=== PATIENT | male | born 1960 | race Caucasian/White ===

== ENCOUNTER 2019-04-19 06:46 | Inpatient (IN) | payer SELFPAY ==
[~2019-04-19] VITALS: Ht 170.2 cm; Wt 68.8 kg
[2019-04-19 07:23] LABS: BASOPHILS ABSOLUTE AUTO 0.03 K/mm3 (0.00-0.23); BASOPHILS PERCENT AUTO 0 % (0-2); EOSINOPHILS PERCENT AUTO 3 % (0-6); Hematocrit 45.7 % (37.0-53.0); Hemoglobin 15.5 g/dL (13.5-17.5); IMMATURE GRAN ABSOLUTE AUTO 0.03 K/mm3 (0.00-0.10); IMMATURE GRAN PERCENT AUTO 0 % (0-1); LYMPHOCYTES ABSOLUTE AUTO 2.29 K/mm3 (0.84-5.20); LYMPHOCYTES PERCENT AUTO 33 % (21-46); MONOCYTES ABSOLUTE AUTO 0.41 K/mm3 (0.16-1.47); MONOCYTES PERCENT AUTO 6 % (4-13); Mean Corpuscular HGB 31.3 pg (26.0-34.0); Mean Corpuscular HGB Conc 33.9 g/dL (31.5-36.5); Mean Corpuscular Volume 92 fL (80-100); Mean Platelet Volume 9.4 fL (9.1-12.4); NEUTROPHILS ABSOLUTE AUTO 3.98 K/mm3 (1.96-9.15); NEUTROPHILS PERCENT AUTO 57 % (41-73); Platelet Count 274 K/mm3 (150-400); RDW Coefficient Variation 11.9 % (11.7-14.2); RDW Standard Deviation 40.2 fL (35.1-46.3); Red Blood Cell Count 4.96 M/mm3 (4.30-5.90); White Blood Cell Count 6.94 K/mm3 (4.00-11.30)
[2019-04-19 07:43] LABS: Alanine Aminotransfer (ALT/SGP 27 U/L (12-78); Albumin, Blood 3.6 g/dL (3.4-5.0); Alk Phos 81 U/L (50-136); Anion Gap 6 mmol/L (6-16); Aspartate Aminotrans (AST/SGOT 19 U/L (12-37); Bilirubin, Total 0.3 mg/dL (0.1-1.0); Blood Urea Nitrogen 16 mg/dL (8-24); Bun/Creatinine Ratio 18.3 (12.0-20.0); CO2, Blood 25 mmol/L (21-32); Calcium, Blood 8.3 mg/dL (8.5-10.1); Chloride, Blood 110 mmol/L (98-108); Creatinine, Blood 0.87 mg/dL (0.60-1.20); Globulin, Blood 3.7 g/dL (2.2-4.0); Glomerular Filtration Rate >60 (60-); Glucose, Blood 116 mg/dL (70-99); Potassium, Blood 3.9 mmol/L (3.5-5.5); Sodium, Blood 141 mmol/L (136-145); Total Protein, Blood 7.3 g/dL (6.4-8.2); Troponin I <0.015 ng/mL (0.000-0.040)
[2019-04-19 09:30] LABS: CHOL/HDL RATIO 4.7; Cholesterol 231 mg/dL (50-200); HDL Cholesterol 49 mg/dL (>39); LDL/HDL RATIO 2.8; Low Density Lipoprotein Chol 138 mg/dL (0-110); Triglycerides 221 mg/dL (30-160); Very Low Density Lipoprot Chol 44 mg/dL (6-32)
--- NOTE | 2019-04-19 11:30 | NUR ---
ASSUMED CARE OF PT AT 1105. PT TO ROOM FROM MASTER MECHANIC. REPORT FROM SALUD PA. PT A&OX 4. ANSWERS QUESTIONS APPROPRIATELY. PT DENIES PAIN. TR BAND TO RIGHT RADIAL ARTERIAL SITE. SWELLING NOTED ABOVE SITE, SOFT, VERIFIED c SALUD PA AND NATE TECH. PRESSURE HELD AND TR BAND APPLIED ABOVE INITIAL TR BAND BY NATE AT 1118. CAP REFILL <3, SENSATION INTACT. HANDS DUSKY BILATERALLY. EDUCATED PT ON INFORMING NURSE OF PAIN OR SWELLING. LUNGS CLEAR. HTN NOTED. CALL LIGHT IN REACH. WILL CONTINUE TO MONITOR.
[2019-04-19 12:00] LABS: Creatine Kinase MB 1.4 ng/mL (0.0-3.6); Creatine Kinase MB Index 1.5 (0.0-4.0); Troponin I 0.031 ng/mL (0.000-0.040)
--- NOTE | 2019-04-19 12:15 | NUR ---
Echocardiogram completed.
--- NOTE | 2019-04-19 13:19 | NUR ---
DR LIZ CONTACTED. LOADING DOSE OF PLAVIX VERIFIED. REPEAT EKG DONE. HTN CONTINUES, MEDICATED c NORVASC AND LOPRESSOR NOW ORDERED. PT CONTINUES TO DENY CP. SCDS APPLIED. WILL HOLD SC HEPARIN AT THIS TIME. NO SWELLING NOTED ABOVE TR BANDS. PT DENIES PAIN TO SITE, SOFT. CAP REFILL<3. WILL CONTINUE TO MONITOR.
--- NOTE | 2019-04-19 17:15 | NUR ---
SHIFT SUMMARY PT S/P STENT PLACEMENT TO DISTAL RCA. PT ARRIVED TO ICU c TR BAND IN PLACE TO RIGHT RADIAL ACCESS SITE. ADDITIONAL TR BAND PLACED PROXIMAL TO INITIAL TR BAND BY MACHINIST LINOTYPE. BOTH BANDS REMOVED AT THIS TIME. ARM BOARD REMAINS IN PLACE. NO BLEEDING OR OOZING FROM SITE. SWELLING NOTED DIRECTLY ABOVE INITIAL TR BAND SITE. PT DENIES PAIN. SENSATION INTACT. CAP REFILL < 3 SEC. P/W/D. WILL CONTINUE TO MONITOR. PT DENIES CHEST PAIN OR OTHER COMPLAINTS. VSS. HR INTERMITTANTLY DECREASES TO MID 40'S. PT DENIES SYMPTOMS c BRADYCARDIA. RATE 50-60'S AT THIS TIME. REPORT TO ONCOMING NURSE.
[2019-04-19 19:34] LABS: Creatine Kinase MB 2.9 ng/mL (0.0-3.6); Creatine Kinase MB Index 2.8 (0.0-4.0); Troponin I 0.238 ng/mL (0.000-0.040)
--- NOTE | 2019-04-19 19:45 | NUR ---
ASSUMED CARE RECIEVED RERPORT FROM PANKAJ RN. PT IS IN BED A& O X 4. PT HAD A RIGHT RADIAL ACCESS, AND SITE LOOKS WNL, SOFT, NONTENDER, AND FREE OF SIGNS OF BLEEDING - ALTHOUGH HAS TRACE SWELLING. GOOD PULSES, CAP REFIL, AND COLOR TO SKIN. DENIES PAIN, AND TINGLING. MOVES ALL FINGERS. PT HAS SCD'S ON. CALL LIGHT WITHIN REACH. BED LOW AND LOCKED. DENIES PAIN.
[2019-04-20 03:12] LABS: BASOPHILS ABSOLUTE AUTO 0.03 K/mm3 (0.00-0.23); BASOPHILS PERCENT AUTO 0 % (0-2); EOSINOPHILS ABSOLUTE AUTO 0.25 K/mm3 (0.00-0.68); EOSINOPHILS PERCENT AUTO 3 % (0-6); Hematocrit 47.8 % (37.0-53.0); IMMATURE GRAN ABSOLUTE AUTO 0.07 K/mm3 (0.00-0.10); IMMATURE GRAN PERCENT AUTO 1 % (0-1); LYMPHOCYTES ABSOLUTE AUTO 2.95 K/mm3 (0.84-5.20); LYMPHOCYTES PERCENT AUTO 32 % (21-46); MONOCYTES ABSOLUTE AUTO 0.68 K/mm3 (0.16-1.47); MONOCYTES PERCENT AUTO 7 % (4-13); Mean Corpuscular HGB 31.7 pg (26.0-34.0); Mean Corpuscular HGB Conc 33.5 g/dL (31.5-36.5); Mean Platelet Volume 9.5 fL (9.1-12.4); NEUTROPHILS ABSOLUTE AUTO 5.26 K/mm3 (1.96-9.15); NEUTROPHILS PERCENT AUTO 57 % (41-73); Platelet Count 267 K/mm3 (150-400); RDW Coefficient Variation 11.9 % (11.7-14.2); RDW Standard Deviation 41.1 fL (35.1-46.3); Red Blood Cell Count 5.05 M/mm3 (4.30-5.90); White Blood Cell Count 9.24 K/mm3 (4.00-11.30)
[2019-04-20 03:14] LABS: Mean Corpuscular Volume 95 fL (80-100)
[2019-04-20 03:37] LABS: Anion Gap 7 mmol/L (6-16); Blood Urea Nitrogen 18 mg/dL (8-24); Bun/Creatinine Ratio 19.3 (12.0-20.0); CHOL/HDL RATIO 4.5; CO2, Blood 24 mmol/L (21-32); CPK Creatine Kinase 106 U/L (39-308); Calcium, Blood 8.7 mg/dL (8.5-10.1); Chloride, Blood 108 mmol/L (98-108); Cholesterol 229 mg/dL (50-200); Creatine Kinase MB Index 4.7 (0.0-4.0); Creatinine, Blood 0.94 mg/dL (0.60-1.20); Glomerular Filtration Rate >60 (60-); Glucose, Blood 108 mg/dL (70-99); HDL Cholesterol 51 mg/dL (>39); LDL/HDL RATIO 2.3; Low Density Lipoprotein Chol 116 mg/dL (0-110); Potassium, Blood 4.4 mmol/L (3.5-5.5); Sodium, Blood 139 mmol/L (136-145); Triglycerides 310 mg/dL (30-160); Troponin I 0.436 ng/mL (0.000-0.040); Very Low Density Lipoprot Chol 62 mg/dL (6-32)
--- NOTE | 2019-04-20 06:09 | NUR ---
SHIFT SUMMARY NO ACUTE EVENTS OVERNIGHT. PT REMAINS A&O X 4 (SELF, SURROUNDINGS, EVENT, AND TIME). PT IS ON ROOM AIR SAT'ING HIGH 90'S. STABLE BP, EVEN DURING BRADYCARDIA. PT'S HR HAS BEEN FROM 37-70. MAINLY FLOATING IN THE LOW 40'S. HE DENIES CP/SOB. HE HAD A STENT PLACED IN THE DISTAL RCA YESTERDAY, VIA A RIGHT RADIAL ARTERY ACCESS. SITE IS SOFT, NONTENDER, WITH NO SIGNS OF HEMATOMA. THERE WAS TRACE SWELLING THAT HAS NOW SUBSIDED. THERE IS STRONG DISTAL PULSES, WITH WARM/PINK COLOR, AND THERE IS NO PAIN OR NUMBNESS/TINGLING IN RIGHT HAND. PT'S ONLY COMPLAINT WAS HEARTBURN, THAT WAS RELIEVED BY TUMS. BED IS LOW AND LOCKED. CALL LIGHT WITHIN REACCH.
--- NOTE | 2019-04-20 09:00 | NUR ---
Initial Assesment Pt alert and orient to person, place and time and very pleasent/cooperative Follows commands and eager to go home denies pain and CP at this time VSS, afebrile and palp pulses t/o with diminished but present right UE pulses. No edema. RA with sats WNL. No CHERRY or upon ambulation s/s of SOB clear and dim breathsounds t/o. Tolerating diet and PO intake, with good appetite and no n/v. no BM, ABD soft round and non tender with BT t/o. UO adequate clear and yellow. Pt ambulated 500 feet with out c/o CP,SOB,weakness or diziness. Pt states "Im ready to get out of here!" Will cont to monitor
[2019-04-20] MEDS ORDERED: AMLO10 PO (09:42)
[2019-04-20] MEDS ORDERED: ASPI81CH PO (09:44)
[2019-04-20] MEDS ORDERED: ATOR40TA PO (09:44)
[2019-04-20] MEDS ORDERED: CLOP75 PO (09:45)
[2019-04-20] MEDS ORDERED: NITR.4SL SL (09:46)
== END 2019-04-20 11:45 | disposition home or self-care (01) | DRG 247 ==
LOC: ER 06:46 → ICUW 08:59 → ICUE 09:26
PROVIDERS: Emergency Medicine; ADMIT Internal Medicine Interventional Cardiology
PROC: 027034Z Dilation of Coronary Artery, One Artery with Drug-eluting Intraluminal Device, Percutaneous Approach (ICD-10-PCS; principal; 2019-04-19)
PROC: 4A023N7 Measurement of Cardiac Sampling and Pressure, Left Heart, Percutaneous Approach (ICD-10-PCS; 2019-04-19)
DX: I21.3 ST elevation (STEMI) myocardial infarction of unspecified site (principal); F17.200 Nicotine dependence, unspecified, uncomplicated; K21.9 Gastro-esophageal reflux disease without esophagitis; I10 Essential (primary) hypertension; Z79.82 Long term (current) use of aspirin; R00.1 Bradycardia, unspecified
CPT/HCPCS: 36415; 71046; 76937; 80048; 80053; 80061; 82550; 82553; 83036; 83880; 84484; 85025; 85347; 93005; 93010; 93306; 93454; 96374; 96375; 99152; 99153; 99285-25; C1725; C1769; C1874; C1887; C1894; C9606; J1644; J2250; J2270; J3010; J7030; J7040; Q9967

== ENCOUNTER 2019-04-24 07:28 | Observation (INO) | payer SELFPAY ==
[~2019-04-24] VITALS: Ht 170.2 cm; Wt 70.3 kg
[~2019-04-24 07:28] MED LIST: AMLO10 PO; ASPI81CH PO; ATOR40TA PO; CLOP75 PO; NITR.4SL SL
[2019-04-24 08:32] LABS: BASOPHILS ABSOLUTE AUTO 0.03 K/mm3 (0.00-0.23); BASOPHILS PERCENT AUTO 0 % (0-2); EOSINOPHILS ABSOLUTE AUTO 0.16 K/mm3 (0.00-0.68); EOSINOPHILS PERCENT AUTO 2 % (0-6); Hematocrit 46.2 % (37.0-53.0); Hemoglobin 15.5 g/dL (13.5-17.5); IMMATURE GRAN ABSOLUTE AUTO 0.02 K/mm3 (0.00-0.10); IMMATURE GRAN PERCENT AUTO 0 % (0-1); LYMPHOCYTES ABSOLUTE AUTO 2.29 K/mm3 (0.84-5.20); LYMPHOCYTES PERCENT AUTO 28 % (21-46); MONOCYTES ABSOLUTE AUTO 0.65 K/mm3 (0.16-1.47); MONOCYTES PERCENT AUTO 8 % (4-13); Mean Corpuscular HGB 31.1 pg (26.0-34.0); Mean Corpuscular HGB Conc 33.5 g/dL (31.5-36.5); Mean Corpuscular Volume 93 fL (80-100); Mean Platelet Volume 10.2 fL (9.1-12.4); NEUTROPHILS ABSOLUTE AUTO 5.11 K/mm3 (1.96-9.15); NEUTROPHILS PERCENT AUTO 62 % (41-73); Platelet Count 261 K/mm3 (150-400); RDW Coefficient Variation 11.8 % (11.7-14.2); RDW Standard Deviation 39.8 fL (35.1-46.3); Red Blood Cell Count 4.98 M/mm3 (4.30-5.90); White Blood Cell Count 8.26 K/mm3 (4.00-11.30)
[2019-04-24 09:03] LABS: Alanine Aminotransfer (ALT/SGP 47 U/L (12-78); Albumin, Blood 3.7 g/dL (3.4-5.0); Albumin/Globulin Ratio 0.9 (0.8-1.8); Alk Phos 88 U/L (50-136); Anion Gap 5 mmol/L (6-16); Aspartate Aminotrans (AST/SGOT 27 U/L (12-37); Bilirubin, Total 0.4 mg/dL (0.1-1.0); Blood Urea Nitrogen 16 mg/dL (8-24); Bun/Creatinine Ratio 18.2 (12.0-20.0); C-REACTIVE PROTEIN, EXT RANGE <0.290 mg/dL (0.000-0.300); CO2, Blood 27 mmol/L (21-32); Calcium, Blood 8.8 mg/dL (8.5-10.1); Chloride, Blood 108 mmol/L (98-108); Creatinine, Blood 0.88 mg/dL (0.60-1.20); Globulin, Blood 3.9 g/dL (2.2-4.0); Glomerular Filtration Rate >60 (60-); Glucose, Blood 89 mg/dL (70-99); Potassium, Blood 3.7 mmol/L (3.5-5.5); Sodium, Blood 140 mmol/L (136-145); Total Protein, Blood 7.6 g/dL (6.4-8.2); Troponin I 0.108 ng/mL (0.000-0.040)
[2019-04-24 11:03] LABS: CPK Creatine Kinase 79 U/L (39-308)
[2019-04-24 11:07] LABS: Creatine Kinase MB <1.0 ng/mL (0.0-3.6); Creatine Kinase MB Index Unable to Calculate (0.0-4.0)
--- NOTE | 2019-04-24 13:42 | NUR ---
PT ARRIVED TO THE MEDICAL FLOOR FROM THE ER AROUND 1200 A/OX3, PLEASANT AND COOPERATIVE, THE PT DENIED ANY CHEST PAIN AT THE TIME OF ARRIVAL, HOWEVER REPOPRTED THAT IT FELT THOUGH BUBBLES WERE PASSING THROUGH HIS HEART, THE PT APPEARS TO BE BREATHING EASLY ON RA, THE PT WAS ORIENTED TO THE ROOM LAYOUT AND CALL SYSTEM, THE AT THIS TIME REPORTS FEELING DIFFERENT, NO PAIN, AND CANT EXACTUALLY EXPLAIN, PT THE DEEP SUBMERGENCE VEHICLE OPERATOR THE PTS HEART RYTHM IS NSR @63 BPM, CALL LIGHT IN REACH, WILL CONTINUE TO MONITOR AND ASSESS FOR CHANGES
[2019-04-24 14:37] LABS: CPK Creatine Kinase 75 U/L (39-308); Troponin I 0.073 ng/mL (0.000-0.040)
[2019-04-24 14:40] LABS: Creatine Kinase MB <1.0 ng/mL (0.0-3.6); Creatine Kinase MB Index Unable to Calculate (0.0-4.0)
--- NOTE | 2019-04-24 16:45 | NUR ---
PT IS A/OX3, PLEASANT AND COOPERATIVE, THE PT IS UP WITH MINIMAL ASSIST, THE PT APPEARS TO BE BREATHING EASILY ON RA, AT THIS TIME, THE PT DENIED ANY SPECIFIC C/P SO FAR THIS SHIFT, FILM INSPECTOR CONSULT CALLED AND THE PT HAS BEEN SEEN BY THE FILM INSPECTOR, THE PTS CALL LIGHT IS WITHIN REACH, TELE ON, WILL CONTINUE TO MONITOR AND ASSESS FRO CHANGES
[2019-04-25 05:15] LABS: Anion Gap 5 mmol/L (6-16); Blood Urea Nitrogen 20 mg/dL (8-24); Bun/Creatinine Ratio 21.7 (12.0-20.0); CO2, Blood 25 mmol/L (21-32); Calcium, Blood 8.6 mg/dL (8.5-10.1); Chloride, Blood 110 mmol/L (98-108); Creatinine, Blood 0.92 mg/dL (0.60-1.20); Glomerular Filtration Rate >60 (60-); Glucose, Blood 97 mg/dL (70-99); Potassium, Blood 4.4 mmol/L (3.5-5.5); Sodium, Blood 140 mmol/L (136-145)
--- NOTE | 2019-04-25 05:16 | NUR ---
SHIFT SUMMARY PT HAS HAD A RESTFUL NIGHT, HE HAS DENIED CP. NO SOB, OR NAUSEA. PT HAS BEEN INDEPENDENT AND AMBULATORY IN THE ROOM. SINUS RHYTHM ON TELE. VITALS STABLE. TROPONIN TRENDING DOWN. PT CURRENTLY ON ASPIRIN REGIMEN AND IS ANTICIPATING DC TODAY. WILL CONTINUE TO MONITOR AND REPORT TO ONCOMING RN.
[2019-04-25] MEDS ORDERED: Aspirin EC650 MG PO (08:25)
[2019-04-25] MEDS ORDERED: TUMS500 MG PO (08:29)
--- NOTE | 2019-04-25 09:48 | NUR ---
PT DISCHARGED THE PT VERBALIZED UNDERSTANDING OF THE DC INSTRUCTIONS, THE PT WAS GIVEN A PACKET FOR [facility] FOLLOW UP AND HELP WITH GETTING A PCP, THE PT WAS REMINDED TO FOLLOW UP WITH HIS QUALITY ASSURANCE SUPERVISOR CHASSIS SCHEDULED, NEW MEDICATIONS ARE OVER THE COUNTER AND THE PT VERBALIZED UNDERSTANDING OF THAT, THE PT DECLINED A WHEELCHAIR AND AMBULATED OUT STEADY ON HIS FEET, THE PT DENIED ANY C/P THIS AM
== END 2019-04-25 08:45 | disposition home or self-care (01) ==
LOC: ER 07:28 → MEDS 07:29 → ENPENDDIS 04-25 07:47 → MEDS 04-25 08:45
PROVIDERS: Emergency Medicine; Nurse Practitioner Acute Care; ADMIT Internal Medicine
DX: I24.1 Dressler's syndrome (principal); I21.19 ST elevation (STEMI) myocardial infarction involving other coronary artery of inferior wall; I10 Essential (primary) hypertension; I25.10 Atherosclerotic heart disease of native coronary artery without angina pectoris; K21.9 Gastro-esophageal reflux disease without esophagitis; E78.5 Hyperlipidemia, unspecified; Z95.5 Presence of coronary angioplasty implant and graft; Z87.891 Personal history of nicotine dependence; Z79.82 Long term (current) use of aspirin; Z79.899 Other long term (current) drug therapy; Z79.02 Long term (current) use of antithrombotics/antiplatelets
CPT/HCPCS: 36415; 71045; 80048; 80053; 82550; 82553; 83880; 84484; 85025; 85651; 86140; 93308; 93321; 96374-59; 99285-25; J1170

== ENCOUNTER 2019-04-28 20:11 | Emergency (ER) | payer SELFPAY ==
[~2019-04-28] VITALS: Ht 170.2 cm; Wt 69.4 kg
[~2019-04-28 20:11] MED LIST changes: +Aspirin EC650 MG PO; +TUMS500 MG PO
[2019-04-28 20:48] LABS: BASOPHILS ABSOLUTE AUTO 0.05 K/mm3 (0.00-0.23); BASOPHILS PERCENT AUTO 0 % (0-2); EOSINOPHILS ABSOLUTE AUTO 0.18 K/mm3 (0.00-0.68); EOSINOPHILS PERCENT AUTO 2 % (0-6); Hematocrit 42.4 % (37.0-53.0); Hemoglobin 14.6 g/dL (13.5-17.5); IMMATURE GRAN ABSOLUTE AUTO 0.03 K/mm3 (0.00-0.10); IMMATURE GRAN PERCENT AUTO 0 % (0-1); LYMPHOCYTES ABSOLUTE AUTO 3.65 K/mm3 (0.84-5.20); LYMPHOCYTES PERCENT AUTO 32 % (21-46); MONOCYTES ABSOLUTE AUTO 0.84 K/mm3 (0.16-1.47); MONOCYTES PERCENT AUTO 7 % (4-13); Mean Corpuscular HGB 31.9 pg (26.0-34.0); Mean Corpuscular HGB Conc 34.4 g/dL (31.5-36.5); Mean Corpuscular Volume 93 fL (80-100); Mean Platelet Volume 10.1 fL (9.1-12.4); NEUTROPHILS ABSOLUTE AUTO 6.64 K/mm3 (1.96-9.15); NEUTROPHILS PERCENT AUTO 58 % (41-73); Platelet Count 277 K/mm3 (150-400); RDW Coefficient Variation 11.6 % (11.7-14.2); RDW Standard Deviation 39.3 fL (35.1-46.3); Red Blood Cell Count 4.57 M/mm3 (4.30-5.90); White Blood Cell Count 11.39 K/mm3 (4.00-11.30)
[2019-04-28 21:04] LABS: Alanine Aminotransfer (ALT/SGP 39 U/L (12-78); Albumin, Blood 3.7 g/dL (3.4-5.0); Albumin/Globulin Ratio 0.9 (0.8-1.8); Alk Phos 101 U/L (50-136); Anion Gap 6 mmol/L (6-16); Aspartate Aminotrans (AST/SGOT 24 U/L (12-37); Bilirubin, Total 0.2 mg/dL (0.1-1.0); Blood Urea Nitrogen 21 mg/dL (8-24); Bun/Creatinine Ratio 25.3 (12.0-20.0); CO2, Blood 25 mmol/L (21-32); Chloride, Blood 108 mmol/L (98-108); Creatinine, Blood 0.83 mg/dL (0.60-1.20); Glomerular Filtration Rate >60 (60-); Glucose, Blood 99 mg/dL (70-99); Potassium, Blood 3.8 mmol/L (3.5-5.5); Sodium, Blood 139 mmol/L (136-145); Total Protein, Blood 7.7 g/dL (6.4-8.2); Troponin I <0.015 ng/mL (0.000-0.040)
== END 2019-04-29 00:23 | disposition home or self-care (01) ==
LOC: ER 20:11
PROVIDERS: Emergency Medicine
DX: R07.9 Chest pain, unspecified (principal); Z87.891 Personal history of nicotine dependence; Z79.899 Other long term (current) drug therapy; Z79.02 Long term (current) use of antithrombotics/antiplatelets; Z79.82 Long term (current) use of aspirin
CPT/HCPCS: 36415; 71046; 80053; 83690; 84484; 85025; 93005; 93010; 99285-25

== ENCOUNTER 2019-05-05 19:05 | Observation (INO) | payer OTHER ==
[~2019-05-05] VITALS: Ht 170.2 cm; Wt 70.0 kg
[2019-05-05] MEDS ORDERED: ISOSORBIDE MONO30 MG PO (19:27)
[2019-05-05] MEDS ORDERED: PLAVIX75 MG PO (19:28)
[2019-05-05] MEDS ORDERED: NITROGLYCERIN0.4 MG SL (19:28)
[2019-05-05] MEDS ORDERED: ATORVASTATIN CA80 MG PO (19:28)
[2019-05-05] MEDS ORDERED: AMLODIPINE BESY10 MG PO (19:28)
[2019-05-05] MEDS ORDERED: Aspir 8181 MG PO (19:29)
[2019-05-05 19:30] LABS: BASOPHILS ABSOLUTE AUTO 0.03 K/mm3 (0.00-0.23); BASOPHILS PERCENT AUTO 0 % (0-2); EOSINOPHILS ABSOLUTE AUTO 0.26 K/mm3 (0.00-0.68); EOSINOPHILS PERCENT AUTO 3 % (0-6); Hemoglobin 15.4 g/dL (13.5-17.5); IMMATURE GRAN ABSOLUTE AUTO 0.03 K/mm3 (0.00-0.10); IMMATURE GRAN PERCENT AUTO 0 % (0-1); LYMPHOCYTES ABSOLUTE AUTO 3.51 K/mm3 (0.84-5.20); LYMPHOCYTES PERCENT AUTO 36 % (21-46); MONOCYTES ABSOLUTE AUTO 0.63 K/mm3 (0.16-1.47); MONOCYTES PERCENT AUTO 7 % (4-13); Mean Corpuscular HGB 31.8 pg (26.0-34.0); Mean Corpuscular HGB Conc 34.2 g/dL (31.5-36.5); Mean Corpuscular Volume 93 fL (80-100); Mean Platelet Volume 9.6 fL (9.1-12.4); NEUTROPHILS ABSOLUTE AUTO 5.23 K/mm3 (1.96-9.15); NEUTROPHILS PERCENT AUTO 54 % (41-73); Platelet Count 281 K/mm3 (150-400); RDW Coefficient Variation 11.5 % (11.7-14.2); RDW Standard Deviation 39.3 fL (35.1-46.3); Red Blood Cell Count 4.84 M/mm3 (4.30-5.90); White Blood Cell Count 9.69 K/mm3 (4.00-11.30)
[2019-05-05 19:44] LABS: Alanine Aminotransfer (ALT/SGP 44 U/L (12-78); Albumin/Globulin Ratio 0.9 (0.8-1.8); Alk Phos 107 U/L (50-136); Anion Gap 6 mmol/L (6-16); Aspartate Aminotrans (AST/SGOT 25 U/L (12-37); Bilirubin, Total 0.2 mg/dL (0.1-1.0); Blood Urea Nitrogen 20 mg/dL (8-24); Bun/Creatinine Ratio 19.6 (12.0-20.0); CO2, Blood 26 mmol/L (21-32); Calcium, Blood 9.3 mg/dL (8.5-10.1); Chloride, Blood 108 mmol/L (98-108); Creatinine, Blood 1.02 mg/dL (0.60-1.20); Globulin, Blood 4.3 g/dL (2.2-4.0); Glomerular Filtration Rate >60 (60-); Glucose, Blood 99 mg/dL (70-99); Potassium, Blood 3.8 mmol/L (3.5-5.5); Sodium, Blood 140 mmol/L (136-145); Total Protein, Blood 8.3 g/dL (6.4-8.2); Troponin I <0.015 ng/mL (0.000-0.040)
--- NOTE | 2019-05-06 07:37 | NUR ---
a+o, call light in reach, rm air, sba due to hoses and lines, alarm on bed, occasional chest pain, usually resolves, worried about going home and having to come right back, bsr shared with pt and day shift
--- NOTE | 2019-05-06 07:38 | NUR ---
ASSUMED CARE: PT RESTING IN BED, NSR ON TELE IN 70S. STATES HE HAS CHEST PRESSURE 3/10 AT THIS TIME AND STATES HE OCCASIONALLY HAS SHARP PAIN LEFT CHEST. CARDILOGY CONSULTED.
--- NOTE | 2019-05-06 11:13 | NUR ---
DR PRABHAKAR AND DR MIRANDA CAME TO SEE PT. STATES PERICARDITIS WITH NEW MEDS FOR LONG ACTING FROYLAN AND ANTIINFLAMMATORY. MEDS EXPLAINED TO PT. PT TOOK WALK AROUND UNIT AND STATED CHEST PAIN STARTED AFTER HE SAT DOWN. NO CHANGES ON TELE. INSTRUCTED PT THAT STRENUOUS ACTIVITY NEEDS TO BE KEPT AT A MINIMUM. DR MIRANDA AWARE WELL.
[2019-05-06] MEDS ORDERED: COLCRYS0.6 M1 PO (12:03)
[2019-05-06] MEDS ORDERED: PANT40 PO (12:03)
--- NOTE | 2019-05-06 13:20 | NUR ---
PT'S DC'D HOME. IV TAKEN OUT WNL. INSTRUCTED PT TO CALL DR REILLY'S OFFICE TOMORROW TO VERIFY APPOINTMENT AND TO DISCUSS LONG ACTING NITRO. PT STATES HEADACHES. ALSO INSTRUCTED PT TO SPEAK WITH PHARMACIST ABOUT MED REACTIONS DUE TO WANTING STOOL SOFTENER. INSTRUCTED NO STRENOUS ACTIVITY UNTIL PERICARDITIS CLEARS. PT ESCORTED OUT VIA WHEEL CHAIR BY HOSPITAL STAFF
== END 2019-05-06 13:11 | disposition home or self-care (01) ==
LOC: ER 19:05 → PCU 19:06
PROVIDERS: Emergency Medicine; ADMIT Hospitalist
DX: R07.9 Chest pain, unspecified (principal); R00.1 Bradycardia, unspecified; I25.10 Atherosclerotic heart disease of native coronary artery without angina pectoris; I10 Essential (primary) hypertension; I31.8 Other specified diseases of pericardium; I21.4 Non-ST elevation (NSTEMI) myocardial infarction; Z95.5 Presence of coronary angioplasty implant and graft; Z79.82 Long term (current) use of aspirin; Z79.02 Long term (current) use of antithrombotics/antiplatelets; Z79.899 Other long term (current) drug therapy; Z87.891 Personal history of nicotine dependence
CPT/HCPCS: 36415; 71046; 80053; 84484; 85025; 86140; 93005; 93010; 96374; 96375; 99285-25; A9270; G0378; G0480; J2060; J3010

== ENCOUNTER 2019-05-10 07:00 | Day surgery (SDC) | payer OTHER ==
[~2019-05-10] VITALS: Ht 170.2 cm; Wt 70.0 kg
[~2019-05-10 07:00] MED LIST changes: +AMLODIPINE BESY10 MG PO; +ATORVASTATIN CA80 MG PO; +Aspir 8181 MG PO; +COLCRYS0.6 M1 PO; +ISOSORBIDE MONO30 MG PO; +NITROGLYCERIN0.4 MG SL; +PANT40 PO; +PLAVIX75 MG PO
[2019-05-10] MEDS ORDERED: OMEP20ER PO (07:46)
--- NOTE | 2019-05-10 11:17 | NUR ---
2CC OF AIR REMOVED FROM tr-BAND. Pt stable with sr. vss stable, pt finished breakfast.
--- NOTE | 2019-05-10 11:37 | NUR ---
2cc air removed from Tr-band.
--- NOTE | 2019-05-10 12:02 | NUR ---
2 CC AIR REMOVED FROM TR-BAND.
--- NOTE | 2019-05-10 12:19 | NUR ---
3 cc of air removed from tr-band. Pt stable with no cp.
--- NOTE | 2019-05-10 13:15 | NUR ---
Pt discharged walked out of hospital. Pt tr band removed at 1240 cleanses with warm water then dabbed dry applied dot cloth to right rad site. Pt sat waited for 40 min then sent home. Noted change in medication per Dr. Martinez aspirin 325 mg po bid for one week to change to 81 mg after. Pt to eat food prior to medication. Pt is alert walking denies pain. Prepared for home. Pt verbalizes understanding of change of medication.
== END 2019-05-10 13:15 | disposition home or self-care (01) ==
LOC: MHTC 07:00
PROC: B2011ZZ Plain Radiography of Multiple Coronary Arteries using Low Osmolar Contrast (ICD-10-PCS; principal; 2019-05-10)
PROC: 4A023N7 Measurement of Cardiac Sampling and Pressure, Left Heart, Percutaneous Approach (ICD-10-PCS; principal; 2019-05-10)
DX: I25.10 Atherosclerotic heart disease of native coronary artery without angina pectoris (principal); I21.4 Non-ST elevation (NSTEMI) myocardial infarction; E78.5 Hyperlipidemia, unspecified; I10 Essential (primary) hypertension; Z79.82 Long term (current) use of aspirin; Z79.02 Long term (current) use of antithrombotics/antiplatelets; Z79.899 Other long term (current) drug therapy; Z87.891 Personal history of nicotine dependence
CPT/HCPCS: 76937; 85347; 92920; 92921; 93454; 99152; 99153; C1725; C1769; C1887; C1894; J1644; J2250; J3010; J7030; Q9967

== ENCOUNTER 2019-11-08 09:40 | Day surgery (SDC) | payer OTHER ==
[~2019-11-08] VITALS: Ht 170.2 cm; Wt 70.4 kg
[~2019-11-08 09:40] MED LIST changes: +METO25ER PO; +OMEP20ER PO
--- NOTE | 2019-11-08 10:19 | NUR ---
11/08/19 1019 Juanita Roy History, Chart, Medications and Allergies reviewed before start of procedure. PATIENT CONFIRMS NPO STATUS AND AGREES WITH SCHEDULED PROCEDURE. MONITOR INTACT WITH CONTINUOUS PULSE OXIMETRY AND INTERMITTENT BP. O2 VIA N/C INTACT THROUGHOUT SEDATION/PROCEDURE. 3-LEAD EKG REVIEWED WITH PHYSICIAN PRIOR TO START OF PROCEDURE. PATIENT DETERMINED TO BE ASA APPROPRIATE FOR PROPOFOL SEDATION PRIOR TO START OF PROCEDURE BY DR. KOEHLER.
--- NOTE | 2019-11-08 10:22 | NUR ---
LATE ENTRY 0951 Ambulatory in Day Surgery History, Chart, Medications and Allergies reviewed before start of procedure. Lungs clear T/O to Auscultation. Patient confirms NPO status and agrees with scheduled surgery. Patient States Post-Procedure ride home has been arranged.
--- NOTE | 2019-11-08 11:19 | NUR ---
Discharge instructions reviewed with patient. Patient verbalizes understanding. Copy given to patient to take home. DR KOEHLER SPOKE WITH PT POST PROCEDURE. TOLERATED OJ FINE, NO C/O PAIN. PT STATES HE WILL GO HOME AND EAT PIZZA, ENCOURAGED PT TO GO SLOW ON DIET AT FIRST. RIDE HOME CALLED AND IS ON HER WAY. Discharged via wheelchair to private car for ride home.
== END 2019-11-08 23:22 | disposition home or self-care (01) ==
LOC: ORSCMMR 09:40 → ORD 10:30 → ORSCMMR 10:30
PROVIDERS: Internal Medicine Gastroenterology
PROC: 0DB68ZX Excision of Stomach, Via Natural or Artificial Opening Endoscopic, Diagnostic (ICD-10-PCS; principal; 2019-11-08 10:30)
PROC: 0DB48ZX Excision of Esophagogastric Junction, Via Natural or Artificial Opening Endoscopic, Diagnostic (ICD-10-PCS; principal; 2019-11-08 10:30)
PROC: 0DB98ZX Excision of Duodenum, Via Natural or Artificial Opening Endoscopic, Diagnostic (ICD-10-PCS; principal; 2019-11-08 10:30)
PROC: 0DB58ZX Excision of Esophagus, Via Natural or Artificial Opening Endoscopic, Diagnostic (ICD-10-PCS; principal; 2019-11-08 10:30)
PROC: 0DBH8ZX Excision of Cecum, Via Natural or Artificial Opening Endoscopic, Diagnostic (ICD-10-PCS; 2019-11-08 10:30)
DX: K22.70 Barrett's esophagus without dysplasia (principal); K21.0 Gastro-esophageal reflux disease with esophagitis; Z12.11 Encounter for screening for malignant neoplasm of colon; D12.0 Benign neoplasm of cecum; K29.70 Gastritis, unspecified, without bleeding; I10 Essential (primary) hypertension; K44.9 Diaphragmatic hernia without obstruction or gangrene; I25.2 Old myocardial infarction; Z79.01 Long term (current) use of anticoagulants; Z79.899 Other long term (current) drug therapy; Z79.82 Long term (current) use of aspirin
CPT/HCPCS: J2704; J7120

== ENCOUNTER 2021-02-18 17:12 | Inpatient (IN) | payer OTHER ==
[~2021-02-18] VITALS: Ht 172.7 cm; Wt 70.4 kg
[~2021-02-18 17:12] MED LIST changes: +AMLO5 PO; -AMLODIPINE BESY10 MG PO; +METO25 PO; -METO25ER PO; -PLAVIX75 MG PO
[2021-02-18 18:05] LABS: BASOPHILS ABSOLUTE AUTO 0.05 K/mm3 (0.00-0.23); BASOPHILS PERCENT AUTO 1 % (0-2); EOSINOPHILS ABSOLUTE AUTO 0.12 K/mm3 (0.00-0.68); EOSINOPHILS PERCENT AUTO 1 % (0-6); Hemoglobin 17.5 g/dL (13.5-17.5); IMMATURE GRAN ABSOLUTE AUTO 0.04 K/mm3 (0.00-0.10); IMMATURE GRAN PERCENT AUTO 0 % (0-1); LYMPHOCYTES ABSOLUTE AUTO 4.01 K/mm3 (0.84-5.20); LYMPHOCYTES PERCENT AUTO 42 % (21-46); MONOCYTES ABSOLUTE AUTO 0.65 K/mm3 (0.16-1.47); MONOCYTES PERCENT AUTO 7 % (4-13); Mean Corpuscular HGB 32.4 pg (26.0-34.0); Mean Corpuscular HGB Conc 36.5 g/dL (31.5-36.5); Mean Corpuscular Volume 89 fL (80-100); Mean Platelet Volume 9.6 fL (9.1-12.4); NEUTROPHILS ABSOLUTE AUTO 4.58 K/mm3 (1.96-9.15); NEUTROPHILS PERCENT AUTO 49 % (41-73); Platelet Count 278 K/mm3 (150-400); RDW Standard Deviation 38.9 fL (35.1-46.3); White Blood Cell Count 9.45 K/mm3 (4.00-11.30)
[2021-02-18 18:13] LABS: Troponin I <0.015 ng/mL (0.000-0.040)
[2021-02-18 19:06] LABS: Alanine Aminotransfer (ALT/SGP 46 U/L (12-78); Albumin, Blood 3.8 g/dL (3.4-5.0); Albumin/Globulin Ratio 0.9 (0.8-1.8); Alk Phos 91 U/L (50-136); Anion Gap 9 mmol/L (6-16); Aspartate Aminotrans (AST/SGOT 42 U/L (12-37); Bilirubin, Total 0.5 mg/dL (0.1-1.0); Blood Urea Nitrogen 15 mg/dL (8-24); Bun/Creatinine Ratio 18.8 (12.0-20.0); CO2, Blood 27 mmol/L (21-32); Calcium, Blood 8.8 mg/dL (8.5-10.1); Chloride, Blood 101 mmol/L (98-108); Globulin, Blood 4.3 g/dL (2.2-4.0); Glomerular Filtration Rate >60 (60-); Glucose, Blood 150 mg/dL (70-99); Potassium, Blood 3.5 mmol/L (3.5-5.5); Sodium, Blood 137 mmol/L (136-145); Total Protein, Blood 8.1 g/dL (6.4-8.2)
[2021-02-18 21:17] LABS: International Normalized Ratio 0.9; Prothrombin Time Results 9.8 Sec (9.7-11.5)
[2021-02-18 22:08] LABS: International Normalized Ratio 0.94; Prothrombin Time Results 10.2 Sec (9.7-11.5)
[2021-02-19 00:41] LABS: CHOL/HDL RATIO 7.3; Cholesterol 279 mg/dL (50-200); HDL Cholesterol 38 mg/dL (>39); LDL/HDL RATIO Unable to Calculate; Low Density Lipoprotein Chol Unable to Calculate mg/dL (0-110); Triglycerides 933 mg/dL (30-160); Very Low Density Lipoprot Chol Unable to Calculate mg/dL (6-32)
[2021-02-19 00:43] LABS: SARS-Cov-2 (COVID-19) PCR, MMC NEGATIVE (NEGATIVE)
[2021-02-19 04:56] LABS: BASOPHILS ABSOLUTE AUTO 0.03 K/mm3 (0.00-0.23); BASOPHILS PERCENT AUTO 0 % (0-2); EOSINOPHILS ABSOLUTE AUTO 0.17 K/mm3 (0.00-0.68); EOSINOPHILS PERCENT AUTO 2 % (0-6); Hematocrit 42.5 % (37.0-53.0); Hemoglobin 15.1 g/dL (13.5-17.5); IMMATURE GRAN ABSOLUTE AUTO 0.04 K/mm3 (0.00-0.10); IMMATURE GRAN PERCENT AUTO 1 % (0-1); LYMPHOCYTES ABSOLUTE AUTO 4.41 K/mm3 (0.84-5.20); LYMPHOCYTES PERCENT AUTO 52 % (21-46); MONOCYTES ABSOLUTE AUTO 0.62 K/mm3 (0.16-1.47); MONOCYTES PERCENT AUTO 7 % (4-13); Mean Corpuscular HGB 31.7 pg (26.0-34.0); Mean Corpuscular HGB Conc 35.5 g/dL (31.5-36.5); Mean Corpuscular Volume 89 fL (80-100); Mean Platelet Volume 9.5 fL (9.1-12.4); NEUTROPHILS ABSOLUTE AUTO 3.24 K/mm3 (1.96-9.15); NEUTROPHILS PERCENT AUTO 38 % (41-73); Platelet Count 209 K/mm3 (150-400); RDW Coefficient Variation 11.9 % (11.7-14.2); RDW Standard Deviation 38.3 fL (35.1-46.3); Red Blood Cell Count 4.77 M/mm3 (4.30-5.90); White Blood Cell Count 8.51 K/mm3 (4.00-11.30)
[2021-02-19 05:36] LABS: Alanine Aminotransfer (ALT/SGP 30 U/L (12-78); Albumin, Blood 3.2 g/dL (3.4-5.0); Albumin/Globulin Ratio 0.9 (0.8-1.8); Alk Phos 66 U/L (50-136); Anion Gap 7 mmol/L (6-16); Aspartate Aminotrans (AST/SGOT 29 U/L (12-37); Bilirubin, Total 0.4 mg/dL (0.1-1.0); Blood Urea Nitrogen 13 mg/dL (8-24); Bun/Creatinine Ratio 15.3 (12.0-20.0); CO2, Blood 27 mmol/L (21-32); Calcium, Blood 8.1 mg/dL (8.5-10.1); Chloride, Blood 104 mmol/L (98-108); Creatinine, Blood 0.85 mg/dL (0.60-1.20); Globulin, Blood 3.6 g/dL (2.2-4.0); Glomerular Filtration Rate >60 (60-); Glucose, Blood 105 mg/dL (70-99); Potassium, Blood 3.1 mmol/L (3.5-5.5); Sodium, Blood 138 mmol/L (136-145); Total Protein, Blood 6.8 g/dL (6.4-8.2)
--- NOTE | 2021-02-19 06:31 | NUR ---
SHIFT SUMMARY RECIEVED REPORT FROM Anna PA, ED @ 6400. ARRIVED TO MEDICAL FLOOR VIA MAYANILSON @ 1138. MINIMAL ASSISTANCE /c TRANSFER. ORIENTED TO ROOM AND CALL SYSTEM. A/O, ABLE TO MAKE NEEDS KNOWN. COOPERATIVE WITH CARE. ANSWERS QUESTIONS APPROPRIATELY. NO C/O PAIN/DISCOMFORT. TELE SR IN 60s; DID DIP INTO 40s WHILE PATIENT WAS SLEEPING. RUNNING HEPARIN IV WITHOUT COMPLICATIONS. APPEARED TO REST OFF AND ON. NO ACUTE CHANGES NOTED SINCE ARRIVAL TO THE FLOOR. BED REMAINED IN LOWEST POSITION. CALL LIGHT AND BELONGINGS WITHIN REACH. CONTINUE WITH CURRENT PLAN OF CARE. CARDIOLOGY CONSULT PLACED. REPORT TO ONCELLA PA.
--- NOTE | 2021-02-19 09:58 | NUR ---
IV IN LEFT HAND ALREADY PLACED PRIOR TO SHIFT.
--- NOTE | 2021-02-19 16:19 | NUR ---
PATIENT IS POST PROCEDURE AND BROUGHT TO THE CATHLAB RECOVERY POST CATHLAB/STENTING PROCEDURE. PATIENT HAD A PCI/STENT TO THE RAMUS AND PCI TO THE RPLA, NO STENT. TR BAND IN PLACE WITH 10 ML OF AIR, PLACED AT 1544. WILL RECOVER PATIENT HERE AND THEN RETURN TO ROOM 358.
--- NOTE | 2021-02-19 16:24 | NUR ---
ECHO PERFORMED AT THE BEDSIDE WHILE IN HEART CENTER RECOVERY. SERVED SNACKS AND ICE WATER. RIGHT HAND WITH WRIST SPLINT IN PLACE AND PATIENT INSTRUCTED NO TO USE.
--- NOTE | 2021-02-19 17:02 | NUR ---
MEDICATIONS OBTAINED FROM THE FLOOR RN AND GIVEN TO THE PATIENT, PREVIOUS PLAVIX AND LIPITOR BOTH ORAL.
--- NOTE | 2021-02-19 17:04 | NUR ---
SHIFT SUMMARY PT AXO, COOPERATIVE WITH CARE THOUGH IRRITABLE. STATES THAT HE HASN'T SLEPT MUCH AND COMPLAINED OF "FEELING WEIRD" AT START OF SHIFT. NURSE ASSESSED PATIENT AND NOTIFIED DR CHAUHAN WHO ORDERED ORTHOSTATIC VS WHICH WERE NEGATIVE. SINUS BRADLEY ON TELE 54-60'S. SOME MORNING MEDS HELD FOR CLINICAL JUDGEMENT FOR LOW PULSE. PT WENT TO POSTDOCTORAL RESEARCH FELLOW AND IS THERE AT THIS TIME. BED IN LOW POSITION, CALL LIGHT WITHIN REACH.
--- NOTE | 2021-02-19 17:18 | NUR ---
DR. HENRIQUEZ AT THE BEDSIDE. SPOKE WITH THE PATIENT AND ALL QUESTIONS ANSWERED. PLAN TO KEEP OVERNIGHT AND MAY DISCHARGE HOME TOMORROW.
--- NOTE | 2021-02-19 17:45 | NUR ---
ASSUMING CARE OF PT AT THIS TIME. PT LAYING IN BEDWATCHING TV. PT A&O X4 AND ABLE TO SPEAK IN FULL SENTENCES AND RECALL INFORMATION. PT DENIES ANY CP OR PAIN AT ACCESS SITE. PT WITH RRAD ACCESS SITE WITH TR BAND IN PLACE WITH 10mL AIR IN BAND. PLAN TO START TO RELEASE AIR IN 5 MINS. PT HAS 18G IV IN L HAND. VSS. PT DENIES ANY NEEDS AT THIS TIME. WILL CONTINUE TO MONITOR.
--- NOTE | 2021-02-19 17:45 | NUR ---
RELEASED 3mL AIR OUT OF TR BAND. NO BLEEDIN, OOZING OR HEMATOMA NOTED. PT DENIES ANY PAIN. FOREARM BELOW TR BAND IS SOMEWHAT FIRM BUT WITH NO CHANGES PER WINTER PA. PT LAYING IN BED WATCHING TV. DENIES ANY OTHER NEEDS AT THIS TIME. VSS. WILL CONTINUE TO MONITOR.
--- NOTE | 2021-02-19 18:09 | NUR ---
ALL AIR RELEASED FROM TR BAND. NO BLEEDING, OOZING OR HEMATOMA NOTED. PT CONTINOUSLY REMINDED NOT TO USE R HAND DUE TO CAUSING BLEEDING. PT STATES "I DONT BLEED" AND CONTINUES TO USE R HAND. WILL CLOSELY MONITOR. PT HE IS EATING DINNER USING HIS R HAND. VSS.
--- NOTE | 2021-02-19 19:21 | NUR ---
TR BAND REMOVED, SITE CLEANED AND CLOTH DOT DRESSING APPLIED. NO BLEEDING, OOZING OR HEMATOMA NOTED. PT DENIES PAIN AT SITE. WHITE BOARD PLACED BACK ON R WRIST. PT EDUCATED ON NOT USING HIS R HAND FOR THE NEXT FEW DAYS AND TO TAKE IT EASY TO PREVENT BLEEDING. ALL DISCHARGE INFORMATIONRELATED TO RADIAL SITE CARE GONE OVER WITH PT. PT DENIES ANY QUESTIONS OR CONCERNS REGARDING SITE CARE. PT AMBULATES TO RESTROOM WITH NO COMPLICATIONS. PT BACK IN BED AND WATCHING TV. VSS. PLAN TO TAKE PT TO MEDICATION FLOOR AFTER SHIFT CHANGE. WILL CONTINUE TO MONITOR.
--- NOTE | 2021-02-20 07:56 | NUR ---
Slept well. right wrist soft flat and dry. arm board in place. Patient looking forward to discharge later today. distal pulses 2+, cap refill <3
[2021-02-20 09:57] LABS: Alanine Aminotransfer (ALT/SGP 30 U/L (12-78); Albumin, Blood 3.5 g/dL (3.4-5.0); Albumin/Globulin Ratio 0.9 (0.8-1.8); Alk Phos 62 U/L (50-136); Anion Gap 4 mmol/L (6-16); Aspartate Aminotrans (AST/SGOT 22 U/L (12-37); Bilirubin, Total 0.3 mg/dL (0.1-1.0); Blood Urea Nitrogen 11 mg/dL (8-24); Bun/Creatinine Ratio 13.1 (12.0-20.0); CO2, Blood 27 mmol/L (21-32); Calcium, Blood 8.8 mg/dL (8.5-10.1); Chloride, Blood 108 mmol/L (98-108); Creatinine, Blood 0.84 mg/dL (0.60-1.20); Globulin, Blood 3.8 g/dL (2.2-4.0); Glomerular Filtration Rate >60 (60-); Glucose, Blood 98 mg/dL (70-99); Potassium, Blood 3.8 mmol/L (3.5-5.5); Sodium, Blood 139 mmol/L (136-145); Total Protein, Blood 7.3 g/dL (6.4-8.2)
[2021-02-20] MEDS ORDERED: Fenofibrate134 MG PO (13:36)
[2021-02-20] MEDS ORDERED: ATOR80 PO (13:36)
== END 2021-02-20 13:53 | disposition home or self-care (01) | DRG 247 ==
LOC: ER 17:12 → MEDS 17:13
PROVIDERS: Pharmacist; Physician Assistant; Student in an Organized Health Care Education/Training Program; ADMIT Internal Medicine
PROC: 4A023N7 Measurement of Cardiac Sampling and Pressure, Left Heart, Percutaneous Approach (ICD-10-PCS; principal; 2021-02-19)
PROC: 027034Z Dilation of Coronary Artery, One Artery with Drug-eluting Intraluminal Device, Percutaneous Approach (ICD-10-PCS; 2021-02-19)
PROC: 02703ZZ Dilation of Coronary Artery, One Artery, Percutaneous Approach (ICD-10-PCS; 2021-02-19)
PROC: B211YZZ Fluoroscopy of Multiple Coronary Arteries using Other Contrast (ICD-10-PCS; 2021-02-19)
DX: I21.4 Non-ST elevation (NSTEMI) myocardial infarction (principal); Z20.822 Contact with and (suspected) exposure to COVID-19; I25.10 Atherosclerotic heart disease of native coronary artery without angina pectoris; K21.9 Gastro-esophageal reflux disease without esophagitis; I10 Essential (primary) hypertension; E78.1 Pure hyperglyceridemia; F17.210 Nicotine dependence, cigarettes, uncomplicated; E87.6 Hypokalemia; I25.2 Old myocardial infarction; Z95.5 Presence of coronary angioplasty implant and graft; Z87.11 Personal history of peptic ulcer disease; Z79.899 Other long term (current) drug therapy; Z79.02 Long term (current) use of antithrombotics/antiplatelets; Z79.82 Long term (current) use of aspirin; Z87.738 Personal history of other specified (corrected) congenital malformations of digestive system
CPT/HCPCS: 36415; 71045; 76937; 80053; 80061; 82947; 84443; 84484; 85025; 85347; 85610; 85730; 92921; 93005; 93010; 93306; 93454; 96372; 96374; 96375; 96376; 99152; 99153; 99285-25; A9270; C1725; C1769; C1874; C1887; C1894; C9600; G0378; J0461; J1644; J2250; J2270; J3010; J7030; J7050; Q9967; U0004

== ENCOUNTER 2021-02-24 18:30 | Observation (INO) | payer OTHER ==
[~2021-02-24] VITALS: Ht 172.7 cm; Wt 68.0 kg
[~2021-02-24 18:30] MED LIST changes: +ATOR80 PO; +Fenofibrate134 MG PO
[2021-02-24 19:02] LABS: BASOPHILS ABSOLUTE AUTO 0.03 K/mm3 (0.00-0.23); BASOPHILS PERCENT AUTO 0 % (0-2); EOSINOPHILS ABSOLUTE AUTO 0.22 K/mm3 (0.00-0.68); EOSINOPHILS PERCENT AUTO 3 % (0-6); Hematocrit 45.1 % (37.0-53.0); Hemoglobin 15.7 g/dL (13.5-17.5); IMMATURE GRAN ABSOLUTE AUTO 0.04 K/mm3 (0.00-0.10); IMMATURE GRAN PERCENT AUTO 1 % (0-1); LYMPHOCYTES ABSOLUTE AUTO 3.27 K/mm3 (0.84-5.20); LYMPHOCYTES PERCENT AUTO 39 % (21-46); MONOCYTES ABSOLUTE AUTO 0.58 K/mm3 (0.16-1.47); MONOCYTES PERCENT AUTO 7 % (4-13); Mean Corpuscular HGB 31.2 pg (26.0-34.0); Mean Corpuscular HGB Conc 34.8 g/dL (31.5-36.5); Mean Corpuscular Volume 90 fL (80-100); Mean Platelet Volume 9.7 fL (9.1-12.4); NEUTROPHILS ABSOLUTE AUTO 4.35 K/mm3 (1.96-9.15); NEUTROPHILS PERCENT AUTO 51 % (41-73); Platelet Count 276 K/mm3 (150-400); RDW Coefficient Variation 12.2 % (11.7-14.2); RDW Standard Deviation 40.2 fL (35.1-46.3); Red Blood Cell Count 5.03 M/mm3 (4.30-5.90); White Blood Cell Count 8.49 K/mm3 (4.00-11.30)
[2021-02-24 19:34] LABS: Alanine Aminotransfer (ALT/SGP 53 U/L (12-78); Albumin, Blood 3.9 g/dL (3.4-5.0); Albumin/Globulin Ratio 0.9 (0.8-1.8); Alk Phos 71 U/L (50-136); Anion Gap 8 mmol/L (6-16); Aspartate Aminotrans (AST/SGOT 26 U/L (12-37); Bilirubin, Total 0.4 mg/dL (0.1-1.0); Blood Urea Nitrogen 20 mg/dL (8-24); Bun/Creatinine Ratio 21.6 (12.0-20.0); CO2, Blood 25 mmol/L (21-32); Calcium, Blood 9.1 mg/dL (8.5-10.1); Chloride, Blood 108 mmol/L (98-108); Creatinine, Blood 0.92 mg/dL (0.60-1.20); Globulin, Blood 4.3 g/dL (2.2-4.0); Glomerular Filtration Rate >60 (60-); Glucose, Blood 104 mg/dL (70-99); Potassium, Blood 3.6 mmol/L (3.5-5.5); Sodium, Blood 141 mmol/L (136-145); Total Protein, Blood 8.2 g/dL (6.4-8.2); Troponin I 0.043 ng/mL (0.000-0.040)
[2021-02-24] MEDS ORDERED: ASPI81CH PO (21:06)
[2021-02-24] MEDS ORDERED: HYDCHL25 PO (21:07)
[2021-02-24] MEDS ORDERED: PANT40 PO (21:08)
[2021-02-24] MEDS ORDERED: PLAVIX75 MG PO (22:04)
[2021-02-24] MEDS ORDERED: TICA90TA PO (22:12)
[2021-02-24 23:08] LABS: D-Dimer, Quantitative 0.24 mg/L FEU (0.00-0.52); International Normalized Ratio 1.01; Prothrombin Time Results 10.9 Sec (9.7-11.5)
[2021-02-25 05:25] LABS: BASOPHILS ABSOLUTE AUTO 0.04 K/mm3 (0.00-0.23); BASOPHILS PERCENT AUTO 1 % (0-2); EOSINOPHILS ABSOLUTE AUTO 0.22 K/mm3 (0.00-0.68); EOSINOPHILS PERCENT AUTO 3 % (0-6); Hematocrit 41.5 % (37.0-53.0); Hemoglobin 14.3 g/dL (13.5-17.5); IMMATURE GRAN ABSOLUTE AUTO 0.04 K/mm3 (0.00-0.10); IMMATURE GRAN PERCENT AUTO 1 % (0-1); LYMPHOCYTES ABSOLUTE AUTO 4.33 K/mm3 (0.84-5.20); LYMPHOCYTES PERCENT AUTO 50 % (21-46); MONOCYTES ABSOLUTE AUTO 0.72 K/mm3 (0.16-1.47); MONOCYTES PERCENT AUTO 8 % (4-13); Mean Corpuscular HGB 31.3 pg (26.0-34.0); Mean Corpuscular HGB Conc 34.5 g/dL (31.5-36.5); Mean Corpuscular Volume 91 fL (80-100); Mean Platelet Volume 9.9 fL (9.1-12.4); NEUTROPHILS ABSOLUTE AUTO 3.39 K/mm3 (1.96-9.15); NEUTROPHILS PERCENT AUTO 39 % (41-73); Platelet Count 219 K/mm3 (150-400); RDW Standard Deviation 40.2 fL (35.1-46.3); Red Blood Cell Count 4.57 M/mm3 (4.30-5.90); White Blood Cell Count 8.74 K/mm3 (4.00-11.30)
[2021-02-25 05:47] LABS: Alanine Aminotransfer (ALT/SGP 42 U/L (12-78); Albumin, Blood 3.2 g/dL (3.4-5.0); Alk Phos 62 U/L (50-136); Anion Gap 6 mmol/L (6-16); Aspartate Aminotrans (AST/SGOT 24 U/L (12-37); Bilirubin, Total 0.4 mg/dL (0.1-1.0); Blood Urea Nitrogen 18 mg/dL (8-24); Bun/Creatinine Ratio 19.7 (12.0-20.0); CO2, Blood 24 mmol/L (21-32); Calcium, Blood 8.9 mg/dL (8.5-10.1); Chloride, Blood 110 mmol/L (98-108); Creatinine, Blood 0.91 mg/dL (0.60-1.20); Globulin, Blood 3.3 g/dL (2.2-4.0); Glomerular Filtration Rate >60 (60-); Glucose, Blood 93 mg/dL (70-99); Potassium, Blood 3.6 mmol/L (3.5-5.5); Sodium, Blood 140 mmol/L (136-145); Total Protein, Blood 6.5 g/dL (6.4-8.2)
--- NOTE | 2021-02-25 06:06 | NUR ---
shift summary pt arrived from ed at about 0100 - alert and oriented, able to make needs known. cooperative with plan of care. sats >90% on room air. c/o of some chest pain - see emar for pain management. tele sinus azyra 40's-50's - norm for patient and aspmtomatic. cardiology was consulted for am - repeat echo planning to be done, and serial troponins show downtrend 0.043, 0.045, 0.036. hep gtt running. npo in case cardiology takes pt for procedure. ambulates independently, urinal at bedside. no bm. vss. call light within reach, bed in lowest position. will continue to monitor.
--- NOTE | 2021-02-25 12:20 | NUR ---
PT TRANSFERED TO SURG PT ARRIVED TO UNIT FROM PCU VIA WC. PT ABLE TO SELF TRANSFER TO BED. PT A&O X4. PT VSS TAKEN UPON ARRIVAL AND HEAD TO TOE ASSESSMENT COMPLETE, SEE ADDITIONAL NOTE. PT DID COMPLAIN OF CHEST TIGHTNESS. PT APPEARS TO BE IN PLEASENT MOOD. PT ORIENTATED TO ROOM, CALL LIGHT W/IN REACH.
--- NOTE | 2021-02-25 12:30 | NUR ---
CHEST TIGHTNESS DURING THE INITIAL HEAD TO TOE ASSESSMENT UPON ARRIVAL FROM PCU THE PT REPORTS CHEST TIGHTNESS THAT IS NEW SINCE THIS MORNING. DR. LANGSTON WAS CONTACTED VIA TELEPHONE AND ORDERED REPEAT EKG. WAS CONTACTED REGAURDING EKG FINDINGS, MEDS ADJUSTED PER ORDERS.
--- NOTE | 2021-02-25 15:30 | NUR ---
DR NOTIFIED DR. TYLER VERIFIED PLANS OF POOL NURSE TOMORROW AM. PT NPO @ 0000. NUCLEAR MEDICINE NOTIFIED, STRESS TEST APPT. SET FOR 073O, WITH PLAN FOR POOL NURSE AFTER.
[2021-02-25 15:41] LABS: CPK Creatine Kinase 86 U/L (39-308)
[2021-02-25 16:07] LABS: Creatine Kinase MB <1.0 ng/mL (0.0-3.6); Creatine Kinase MB Index Unable to Calculate (0.0-4.0)
--- NOTE | 2021-02-25 18:05 | NUR ---
SHIFT SUMMARY PT A&O X4. PT HAS BEEN RESTING IN BED T/O SHIFT SINCE TRANSFER. PT HAS BEEN COMPLAINING OF CHEST TIGHTNESS T/O SHIFT W/ NO CHANGES. PT IS TOLERATING ORAL INTAKE WELL, VOIDING WELL. CALL LIGHT W/ IN REACH. PT DECLINED POWERGLIDE PLACEMENT AFTER FAILED IV ATTEMPT.
[2021-02-26 09:19] LABS: Cholesterol 215 mg/dL (50-200); LDL Direct Measurement 134 mg/dL (0-130); Triglycerides 174 mg/dL (30-160)
[2021-02-26 10:07] LABS: SARS-Cov-2 (COVID-19) PCR, MMC NEGATIVE (NEGATIVE)
--- NOTE | 2021-02-26 11:21 | NUR ---
PT TO WHOLESALE AGRONOMIST.
--- NOTE | 2021-02-26 12:54 | NUR ---
PATIENT ARRIVED TO HEART CENTER RECOVERY ROOM POST PROCEDURE. TR BAND IN PLACE TO RIGHT RADIAL. SITE SOFT AND NONTENDER 10 AIR IN TR BAND. DENIES CHEST PAIN.
--- NOTE | 2021-02-26 13:30 | NUR ---
PATIENT C/O L HAND THUMB ANF1ST FINGER FEELING NUMB. HAND IS PINK AND WARM. 1 CC AIR REMOVED FROM TR BAN. PATIENT HAS HAD RESOLUTION OF NUMB FEELING.
--- NOTE | 2021-02-26 15:57 | NUR ---
RIGHT RADIAL SITE SOFT AND NONTENDER. NO HEMATOMA
--- NOTE | 2021-02-26 16:17 | NUR ---
TR BAND REMOVED SITE SOFT AND NONTENDER. NO HEMATOMA. CLOTH DOT APPLIED TO SITE. WRIST BOARD PLACE TO RIGHT FOREARM AND WRIST.
--- NOTE | 2021-02-26 16:33 | NUR ---
PATIENT TRANSFERRED TO ROOM 213 VIA GURNEY. A&O DENIES ANY PAIN. WRIST BOARD I PLACE . SOFT SOFT AND NONTENDER NO HEMATOMA SITE REVIEWED WITH ELLYN PA REVIEW OF DISCHARGE INSTRUCTIONS GIVEN TO NURSE AND PATIENT NO FURTHER QUESTIONS
--- NOTE | 2021-02-26 17:29 | NUR ---
PT ARRIVED BACK TO UNIT FROM HEART CENTER AT APPROXIMATELY 1635. TRAMSFERRED FROM RNEY TO BED INDEPEDNETLY. WISHES TO GO HOME. NOTIFIED DR LANGSTON, ORDERS OBTAINED. VSS. DRESSING TO RADIAL SITE CDI. NO EDEMA NOTED. ARM BOARD IN PLACE.
[2021-02-26] MEDS ORDERED: LOSA25 PO (17:42)
[2021-02-26] MEDS ORDERED: CLOP75 PO (17:42)
--- NOTE | 2021-02-26 17:42 | NUR ---
FAXED [facility]AC[facility]ET TO [facility].
[2021-02-26] MEDS ORDERED: METO25ER PO (17:43)
--- NOTE | 2021-02-26 18:30 | NUR ---
DISCHARGED REVIEWED DC PAPERWORK W/PT; DISMISSIVE, STATED 'KNOW WHAT TO DO'. REITERATED ACTIVITY RESTRICTIONS TO RUE DUE TO RADIAL SITE. REITERATED IMPORTANCE OF TAKING MEDS DIRECTED. DC'D TELE AND SENT BACK. DC'D IV, CATHETER INTACT. PT LEFT UNIT IN WC W/POSSESSIONS AND DC PAPERWORK IN HAND. PRESCRIPTIOINS FAXED TO [facility].
== END 2021-02-26 18:27 | disposition home or self-care (01) ==
LOC: ER 18:30 → SURS 18:31 → ERHOLD 18:31 → SURS 18:32 → ERHOLD 22:37 → PCU 22:37 → SURS 22:37 → ER 22:37 → ERHOLD 02-25 00:57 → PCU 02-25 00:57 → SURS 02-25 12:32
PROVIDERS: Emergency Medicine Emergency Medical Services; Internal Medicine Cardiovascular Disease; Student in an Organized Health Care Education/Training Program; ADMIT Family Medicine
DX: I25.119 Atherosclerotic heart disease of native coronary artery with unspecified angina pectoris (principal); I10 Essential (primary) hypertension; E78.1 Pure hyperglyceridemia; I25.2 Old myocardial infarction; E87.6 Hypokalemia; E78.5 Hyperlipidemia, unspecified; F17.210 Nicotine dependence, cigarettes, uncomplicated; Z95.5 Presence of coronary angioplasty implant and graft; Z87.11 Personal history of peptic ulcer disease; Z88.8 Allergy status to other drugs, medicaments and biological substances; Z91.14 Patient's other noncompliance with medication regimen; Z20.822 Contact with and (suspected) exposure to COVID-19
CPT/HCPCS: 36415; 71045; 78452; 80053; 82465; 82550; 82553; 83721; 84478; 84484; 85025; 85347; 85379; 85610; 85651; 85730; 86140; 86141; 93005; 93010; 93017; 93308; 93321; 93458; 96365; 96375; 99152; 99153; 99285-25; A9270; A9500; C1769; C1887; C1894; J0706; J1644; J2060; J2250; J2405; J2785; J3010; J7030; J7050; Q9967; U0004

== ENCOUNTER 2021-05-13 18:50 | Emergency (ER) | payer OTHER ==
[~2021-05-13] VITALS: Ht 170.2 cm; Wt 74.8 kg
[~2021-05-13 18:50] MED LIST changes: +HYDCHL25 PO; +LOSA25 PO; +METO25ER PO; +PLAVIX75 MG PO; +TICA90TA PO
[2021-05-13 19:28] LABS: BASOPHILS ABSOLUTE AUTO 0.04 K/mm3 (0.00-0.23); BASOPHILS PERCENT AUTO 1 % (0-2); EOSINOPHILS ABSOLUTE AUTO 0.18 K/mm3 (0.00-0.68); EOSINOPHILS PERCENT AUTO 2 % (0-6); Hematocrit 45.9 % (37.0-53.0); IMMATURE GRAN ABSOLUTE AUTO 0.04 K/mm3 (0.00-0.10); IMMATURE GRAN PERCENT AUTO 1 % (0-1); LYMPHOCYTES ABSOLUTE AUTO 3.24 K/mm3 (0.84-5.20); LYMPHOCYTES PERCENT AUTO 39 % (21-46); MONOCYTES ABSOLUTE AUTO 0.49 K/mm3 (0.16-1.47); MONOCYTES PERCENT AUTO 6 % (4-13); Mean Corpuscular HGB 31.5 pg (26.0-34.0); Mean Corpuscular HGB Conc 34.9 g/dL (31.5-36.5); Mean Corpuscular Volume 90 fL (80-100); Mean Platelet Volume 9.8 fL (9.1-12.4); NEUTROPHILS ABSOLUTE AUTO 4.42 K/mm3 (1.96-9.15); NEUTROPHILS PERCENT AUTO 53 % (41-73); Platelet Count 273 K/mm3 (150-400); RDW Coefficient Variation 12.6 % (11.7-14.2); RDW Standard Deviation 41.9 fL (35.1-46.3); Red Blood Cell Count 5.08 M/mm3 (4.30-5.90); White Blood Cell Count 8.41 K/mm3 (4.00-11.30)
[2021-05-13 19:49] LABS: Alanine Aminotransfer (ALT/SGP 41 U/L (12-78); Albumin, Blood 3.6 g/dL (3.4-5.0); Albumin/Globulin Ratio 0.8 (0.8-1.8); Alk Phos 83 U/L (50-136); Anion Gap 6 mmol/L (6-16); Aspartate Aminotrans (AST/SGOT 29 U/L (12-37); Bilirubin, Total 0.3 mg/dL (0.1-1.0); Blood Urea Nitrogen 16 mg/dL (8-24); Bun/Creatinine Ratio 19.4 (12.0-20.0); CO2, Blood 26 mmol/L (21-32); Calcium, Blood 8.8 mg/dL (8.5-10.1); Chloride, Blood 108 mmol/L (98-108); Creatinine, Blood 0.83 mg/dL (0.60-1.20); Globulin, Blood 4.3 g/dL (2.2-4.0); Glomerular Filtration Rate >60 (60-); Glucose, Blood 121 mg/dL (70-99); Potassium, Blood 3.9 mmol/L (3.5-5.5); Sodium, Blood 140 mmol/L (136-145); Total Protein, Blood 7.9 g/dL (6.4-8.2); Troponin I <0.015 ng/mL (0.000-0.040)
== END 2021-05-13 21:26 | disposition home or self-care (01) ==
LOC: ER 18:50
PROVIDERS: Emergency Medicine
DX: R07.89 Other chest pain (principal); G89.29 Other chronic pain; I25.2 Old myocardial infarction; K21.9 Gastro-esophageal reflux disease without esophagitis; I10 Essential (primary) hypertension; F17.200 Nicotine dependence, unspecified, uncomplicated; Z79.82 Long term (current) use of aspirin; Z79.899 Other long term (current) drug therapy; Z88.8 Allergy status to other drugs, medicaments and biological substances
CPT/HCPCS: 71045; 80053; 84484; 85025; 93005; 93010; J2270

== ENCOUNTER 2021-05-14 09:47 | Inpatient (IN) | payer OTHER ==
[~2021-05-14] VITALS: Ht 170.2 cm; Wt 74.0 kg
[2021-05-14 10:13] LABS: BASOPHILS ABSOLUTE AUTO 0.02 K/mm3 (0.00-0.23); BASOPHILS PERCENT AUTO 0 % (0-2); EOSINOPHILS ABSOLUTE AUTO 0.17 K/mm3 (0.00-0.68); EOSINOPHILS PERCENT AUTO 3 % (0-6); Hematocrit 46.3 % (37.0-53.0); Hemoglobin 15.8 g/dL (13.5-17.5); IMMATURE GRAN ABSOLUTE AUTO 0.03 K/mm3 (0.00-0.10); IMMATURE GRAN PERCENT AUTO 1 % (0-1); LYMPHOCYTES ABSOLUTE AUTO 2.39 K/mm3 (0.84-5.20); LYMPHOCYTES PERCENT AUTO 36 % (21-46); MONOCYTES ABSOLUTE AUTO 0.55 K/mm3 (0.16-1.47); MONOCYTES PERCENT AUTO 8 % (4-13); Mean Corpuscular HGB 30.4 pg (26.0-34.0); Mean Corpuscular HGB Conc 34.1 g/dL (31.5-36.5); Mean Corpuscular Volume 89 fL (80-100); Mean Platelet Volume 9.5 fL (9.1-12.4); NEUTROPHILS ABSOLUTE AUTO 3.49 K/mm3 (1.96-9.15); NEUTROPHILS PERCENT AUTO 52 % (41-73); Platelet Count 257 K/mm3 (150-400); RDW Coefficient Variation 12.3 % (11.7-14.2); RDW Standard Deviation 40.6 fL (35.1-46.3); White Blood Cell Count 6.65 K/mm3 (4.00-11.30)
[2021-05-14 10:34] LABS: Alanine Aminotransfer (ALT/SGP 36 U/L (12-78); Albumin, Blood 3.6 g/dL (3.4-5.0); Albumin/Globulin Ratio 0.9 (0.8-1.8); Alk Phos 74 U/L (50-136); Anion Gap 7 mmol/L (6-16); Aspartate Aminotrans (AST/SGOT 27 U/L (12-37); Bilirubin, Total 0.5 mg/dL (0.1-1.0); Blood Urea Nitrogen 14 mg/dL (8-24); Bun/Creatinine Ratio 17.4 (12.0-20.0); CO2, Blood 24 mmol/L (21-32); Calcium, Blood 8.9 mg/dL (8.5-10.1); Chloride, Blood 108 mmol/L (98-108); Creatinine, Blood 0.81 mg/dL (0.60-1.20); Globulin, Blood 4.1 g/dL (2.2-4.0); Glomerular Filtration Rate >60 (60-); Glucose, Blood 121 mg/dL (70-99); Potassium, Blood 3.7 mmol/L (3.5-5.5); Sodium, Blood 139 mmol/L (136-145); Total Protein, Blood 7.7 g/dL (6.4-8.2); Troponin I 0.051 ng/mL (0.000-0.040)
[2021-05-14 12:29] LABS: Influenza A, PCR NEGATIVE (NEGATIVE); Influenza B, PCR NEGATIVE (NEGATIVE); Resp Syncytial Virus, PCR NEGATIVE (NEGATIVE); SARS-Cov-2 (COVID-19) PCR, MMC NEGATIVE (NEGATIVE)
--- NOTE | 2021-05-14 18:53 | NUR ---
VSS. AFEBRILE. C/O GENERALIZED CP THAT RADIATES TO JAW- MORPHINE X1, ADEQUATE CONTROL OF PAIN PER PT. AUO. NO BM. TOLERATING CURRENT DIET- TENTATIVE NPO AT 00:00. CONTINUED HEPARIN GTT- NO S/S OF BLEEDING. IVF MAINTAINED. TENTATIVE ANGIO 05/15. FREQUENT ROUNDS TO ENSURE PT SAFETY. PT IN NO APPARENT DISTRESS AT THIS TIME. WILL CONTINUE TO MONITOR UNTIL TRANSFER OF CARE.
[2021-05-15 04:10] LABS: BASOPHILS ABSOLUTE AUTO 0.02 K/mm3 (0.00-0.23); BASOPHILS PERCENT AUTO 0 % (0-2); EOSINOPHILS PERCENT AUTO 2 % (0-6); Hematocrit 39.9 % (37.0-53.0); Hemoglobin 13.7 g/dL (13.5-17.5); IMMATURE GRAN ABSOLUTE AUTO 0.04 K/mm3 (0.00-0.10); IMMATURE GRAN PERCENT AUTO 0 % (0-1); LYMPHOCYTES ABSOLUTE AUTO 3.02 K/mm3 (0.84-5.20); LYMPHOCYTES PERCENT AUTO 31 % (21-46); MONOCYTES ABSOLUTE AUTO 0.66 K/mm3 (0.16-1.47); MONOCYTES PERCENT AUTO 7 % (4-13); Mean Corpuscular HGB 30.9 pg (26.0-34.0); Mean Corpuscular HGB Conc 34.3 g/dL (31.5-36.5); Mean Corpuscular Volume 90 fL (80-100); Mean Platelet Volume 9.8 fL (9.1-12.4); NEUTROPHILS ABSOLUTE AUTO 5.84 K/mm3 (1.96-9.15); NEUTROPHILS PERCENT AUTO 60 % (41-73); Platelet Count 218 K/mm3 (150-400); RDW Coefficient Variation 12.4 % (11.7-14.2); RDW Standard Deviation 40.9 fL (35.1-46.3); Red Blood Cell Count 4.44 M/mm3 (4.30-5.90); White Blood Cell Count 9.78 K/mm3 (4.00-11.30)
[2021-05-15 04:38] LABS: Alanine Aminotransfer (ALT/SGP 30 U/L (12-78); Albumin/Globulin Ratio 0.8 (0.8-1.8); Alk Phos 61 U/L (50-136); Anion Gap 7 mmol/L (6-16); Aspartate Aminotrans (AST/SGOT 32 U/L (12-37); Bilirubin, Total 0.6 mg/dL (0.1-1.0); Blood Urea Nitrogen 14 mg/dL (8-24); Bun/Creatinine Ratio 15.2 (12.0-20.0); CO2, Blood 25 mmol/L (21-32); Calcium, Blood 8.5 mg/dL (8.5-10.1); Chloride, Blood 107 mmol/L (98-108); Creatinine, Blood 0.92 mg/dL (0.60-1.20); Globulin, Blood 3.6 g/dL (2.2-4.0); Glomerular Filtration Rate >60 (60-); Glucose, Blood 118 mg/dL (70-99); Potassium, Blood 3.7 mmol/L (3.5-5.5); Sodium, Blood 139 mmol/L (136-145); Total Protein, Blood 6.6 g/dL (6.4-8.2)
--- NOTE | 2021-05-15 05:53 | NUR ---
SHIFT SUMMARY PATIENT IS AN ANXIOUS MAN WHO IS A&OX4. UP AD MIRACLE IN ROOM. VSS. ON RA. NSR ON THE MONITOR IN THE 60'S BUT DID DIP TO LOW 50'S WHEN ASLEEP. CP DESCRIBED INTERMITTENT SHARP COLDNESS WELL SEVERE HEADACHE. TOLERABLE LEVEL OF 5 MOST OF SHIFT BUT PAIN INCREASED EARLY AM. GAVE MORPHINE WITH GOOD RELIEF. REFUSED EKG AND OXYGEN ADDITIONAL INTERVENTIONS FOR THIS. NPO AFTER MIDNIGHT FOR PROCEDURE. VOIDING WELL PER URINAL. HEPARIN DRIP AND FLUIDS RUNNING PER ORDER. NO ACUTE CONCERNS AT THIS TIME. WILL CONTINUE PLAN OF CARE UNTIL REPORT GIVEN TO LUC PA.
--- NOTE | 2021-05-15 17:56 | NUR ---
VSS. AFEBRILE. C/O CHEST PAIN THAT RADIATES TO JAW- MORPHINE X3, ADEQUATE CONTROL OF PAIN PER PT. AUO. NO BM. TOLERATING CURRENT DIET. HEPARIN GTT CONTINUED- NO S/S OF BLEEDING. TENTATIVE ANGIO 05/16 AT 10:00. FREQUENT ROUNDS TO ENSURE PT SAFETY. PT IN NO APPARENT DISTRESS AT THIS TIME. WILL CONTINUE TO MONITOR UNTIL TRANSFER OF CARE TO ONCOMING RN.
--- NOTE | 2021-05-16 06:32 | NUR ---
SHIFT SUMMARY PATIENT IS A&OX4,ANXIOUS AND ANGRY AT TIMES. VSS. SR/SB IN 50'S-60'S. CP KEPT AT TOLERABLE LEVEL OF 5 WITH HELP OF MORPHINE Q4H. ON RA SATING HIGH 90'S. NPO AT MIDNIGHT FOR MANAGER FINANCIAL REPORTING IN AM. UP AD MIRACLE IN ROOM. VOIDING WELL PER URINAL. IV FLUIDS AND HEPARING DRIP RUNNING PER ORDER. NO ACUTE CONCERNS AT THIS TIME. WILL CONTINUE PLAN OF CARE UNTIL REPORT TO DAYSHIFT THIERNO.
--- NOTE | 2021-05-16 18:16 | NUR ---
RECEIVED FROM MANAGER RECRUITMENT. DENIES CP. R RADIAL SITE WITH TBAND IN PLACE. NO S/S OF BLEEDING NOTED. VSS. AFEBRILE AUO. NO BM. FREQUENT ROUNDS TO ENSURE PT SAFETY. PT IN NO APPARENT DISTRESS AT THIS TIME. WILL CONTINUE TO MONITOR UNTIL TRANSFER OF CARE TO ONCOMING RN.
--- NOTE | 2021-05-16 20:30 | NUR ---
pt c/o cp 01/27, states "the same pain bart been having all along." refused sl nitro, wants iv morphine troponin with expected increase after stenting, 0.78. dr parekh notified of above, ekg completed show sb without ectopy. per dr neves, ok to give iv morphine, notified of troponin. pt refusing to wear pulse ox on right hand, wants trband removed, states "youre late, everyone here gives different instructions" attempted to educate pt on rationale for leaving pulse ox sensor on right hand, but he refused education. states "my dog could take this off." will continue to monitor and attempt to educate. ray cruz
--- NOTE | 2021-05-17 03:52 | NUR ---
tr band off, site covered with transparent dressing, pt is andie rennyue he said he had a different dressing last time, and he wants the same kind now. attempted to educate pt on policy for radial access dressings after tr band removal but pt wavwed me away and refused education. ray cruz
--- NOTE | 2021-05-17 03:58 | NUR ---
ch tropinin 0.727 expected result post cath, trending down. ray cruz
--- NOTE | 2021-05-17 05:10 | NUR ---
EVENT NOTE REQUESTED TO ROOM BY STAFF R/T PT YELLING AND STATING "I WANT TO TALK TO THE CHARGE NURSE OR ELSE I'M GOING TO LEAVE". UPON ENTERING THE ROOM, PT IS CALM AND STATES "I ALMOST JUST UP AND WENT TO THE ER SO THEY CAN FIX THIS DRESSING". ALSO STATED "I'VE HAD A LOT OF THESE PROCEDURES AND THEY ALWAYS USE A ROUND BANDAGE AND THEY CLEAN IT UP, THAT NURSE LEFT BLOOD AND DOESN'T KNOW WHAT SHE'S DOING". REASSURED PT THAT THE STAFF NURSE PLACED A PROPER DRESSING AND THAT BEST PRACTICE IS TO LEAVE ANY CLOTTED BLOOD OVER THE INSERTION SITE TO PREVENT FURTHER BLEEDING. OFFERED A CHOICE OF SEVERAL DRESSINGS THAT ARE SUITABLE FOR POST ANGIO AND PT SELECTED ONE THAT HE PREFERS. PLACED NEW DRESSING AND PT STATED "I'LL WAIT TO BE DISCHARGED NOW, I JUST WANTED TO MAKE SURE THIS GOT DONE RIGHT". DENIED ANY OTHER CONCERNS OR NEEDS AT THIS TIME. PRIMARY RN UPDATED.
--- NOTE | 2021-05-17 05:51 | NUR ---
SHIFT SUMMARY: PT EMOTIONALLY LABILE, SMILING AND JOKING ONE MINUTE THEN ASKING SUSPICIOUSLY "WHY ARE YOU CREEPING AROUND?" WHEN THIS GAS INSPECTOR CHECKING RIGHT RADIAL ACCESS SITE. UPSET ABOUT ABOUT DRESSING THAT WAS PLACED OVER RADIAL SITE, UPSET BECAUSE HE HAD TO WAIT SO LONG FOR CATH AND "TE HAD SEVEN OF OF THESE AND I KNOW WHAT NEEDS TO BE DONE. THATS NOT THE RIGHT DRESSING" PT NOT RECEPTIVE TO EDUCATION. TELE SHOWS SR, VSS, RIGHT RADIAL SITE WITHOUT ACTIVE BLEEDING OR HEMATOMA FORMATION, WITH TRANSPARENT DRESSING INTACT, BUT PT REQUESTED TO SPEAK WITH CN AND DRESSING WAS CHANGED PER CN. BED LOCKED AND LOW, CALL JOHNSON INREACH, BUT PT DOES NOT USE IT AND IS UP AD MIRACLE. WHEN REQUESTED TO USE CALL LIGHT HE HAS NOT YET BEEN OUT OF BED POST PROCEDURE, PT STATES "I CAN DO THIS AND DRINK 12 BEERS WITHOUT A PROBLEM."
--- NOTE | 2021-05-17 09:50 | NUR ---
UPDATE PT UPSET ABOUT WAITING FOR DISCHARGE ORDERS THIS AM. PT ENCOURAGED TO WAIT TO RECEIVE DISCHARGE INSTRUCTIONS AND MEDICATIONS. PT REMOVED HIS IV AND PATIENT RESOURCE COORDINATOR. WHILE THIS RN WAS IN ANOTHER ROOM, PT LEFT WITHOUT DISCHARGE ORDERS. CHARGE NURSE, PHYSICIAN AND NURSING COMMUNITY HEALTH OUTREACH WORKER AWARE. WILL ATEMPT TO CALL PATIENT AND PROVIDE DISCHARGE INSTRUCTIONS OVER THE PHONE.
== END 2021-05-17 09:50 | disposition left against medical advice (07) | DRG 247 ==
LOC: ER 09:47 → PCU 12:30
PROVIDERS: Emergency Medicine; Nurse Practitioner Acute Care; ADMIT Internal Medicine
PROC: 027135Z Dilation of Coronary Artery, Two Arteries with Two Drug-eluting Intraluminal Devices, Percutaneous Approach (ICD-10-PCS; principal; 2021-05-16)
PROC: 4A023N7 Measurement of Cardiac Sampling and Pressure, Left Heart, Percutaneous Approach (ICD-10-PCS; 2021-05-16)
PROC: B2111ZZ Fluoroscopy of Multiple Coronary Arteries using Low Osmolar Contrast (ICD-10-PCS; 2021-05-16)
PROC: 4A023N7 Measurement of Cardiac Sampling and Pressure, Left Heart, Percutaneous Approach (ICD-10-PCS; 2021-05-16)
PROC: B2111ZZ Fluoroscopy of Multiple Coronary Arteries using Low Osmolar Contrast (ICD-10-PCS; 2021-05-16)
DX: I21.4 Non-ST elevation (NSTEMI) myocardial infarction (principal); Z20.822 Contact with and (suspected) exposure to COVID-19; I25.110 Atherosclerotic heart disease of native coronary artery with unstable angina pectoris; I10 Essential (primary) hypertension; F17.210 Nicotine dependence, cigarettes, uncomplicated; K21.9 Gastro-esophageal reflux disease without esophagitis; E78.1 Pure hyperglyceridemia; Z95.5 Presence of coronary angioplasty implant and graft; I25.2 Old myocardial infarction; Z91.14 Patient's other noncompliance with medication regimen; Z87.11 Personal history of peptic ulcer disease; Z98.818 Other dental procedure status; Z88.8 Allergy status to other drugs, medicaments and biological substances; Z79.02 Long term (current) use of antithrombotics/antiplatelets; Z79.82 Long term (current) use of aspirin; Z79.899 Other long term (current) drug therapy
CPT/HCPCS: 0241U; 36415; 71046; 80053; 83690; 84484; 85025; 85347; 85520; 93005; 93010; 93454; 96374; 96375; 96376; 99152; 99153; 99285-25; A9270; C1725; C1769; C1874; C1887; C1894; C9600; J1644; J2250; J2270; J2405; J3010; J7030; J7050; Q9967

== ENCOUNTER 2022-06-21 10:13 | Observation (INO) | payer OTHER ==
[~2022-06-21] VITALS: Ht 172.7 cm; Wt 66.0 kg
[2022-06-21 10:47] LABS: BASOPHILS ABSOLUTE AUTO 0.02 K/mm3 (0.00-0.23); BASOPHILS PERCENT AUTO 0 % (0-2); EOSINOPHILS ABSOLUTE AUTO 0.17 K/mm3 (0.00-0.68); EOSINOPHILS PERCENT AUTO 3 % (0-6); Hematocrit 46.1 % (37.0-53.0); Hemoglobin 16.1 g/dL (13.5-17.5); IMMATURE GRAN ABSOLUTE AUTO 0.02 K/mm3 (0.00-0.10); IMMATURE GRAN PERCENT AUTO 0 % (0-1); LYMPHOCYTES PERCENT AUTO 37 % (21-46); MONOCYTES ABSOLUTE AUTO 0.42 K/mm3 (0.16-1.47); MONOCYTES PERCENT AUTO 7 % (4-13); Mean Corpuscular HGB 30.7 pg (26.0-34.0); Mean Corpuscular HGB Conc 34.9 g/dL (31.5-36.5); Mean Corpuscular Volume 88 fL (80-100); Mean Platelet Volume 9.5 fL (9.1-12.4); NEUTROPHILS ABSOLUTE AUTO 3.22 K/mm3 (1.96-9.15); NEUTROPHILS PERCENT AUTO 52 % (41-73); Platelet Count 228 K/mm3 (150-400); RDW Standard Deviation 38.6 fL (35.1-46.3); Red Blood Cell Count 5.24 M/mm3 (4.30-5.90); White Blood Cell Count 6.15 K/mm3 (4.00-11.30)
[2022-06-21 11:11] LABS: Albumin, Blood 3.8 g/dL (3.4-5.0); Bilirubin, Total 0.4 mg/dL (0.1-1.0); Bun/Creatinine Ratio 12.3 (12.0-20.0); Calcium, Blood 8.9 mg/dL (8.5-10.1); Creatinine, Blood 0.9 mg/dL (0.60-1.20); Globulin, Blood 3.8 g/dL (2.2-4.0); Potassium, Blood 3.8 mmol/L (3.5-5.5); Total Protein, Blood 7.6 g/dL (6.4-8.2)
--- NOTE | 2022-06-21 14:49 | NUR ---
PT ADMITTED TO ROOM 338 AT 1430. REPORT RECEIVED FROM MT PA. PT A/O X 4, IND TO BED FROM WHEELCHAIR. PT STEADY ON FEET. PT DENIED CP ON ARRIVAL. MED REC COMPLETED. MILL WASHER HERE NOW TO COMPLETE ECHO.
--- NOTE | 2022-06-21 19:43 | NUR ---
SHIFT SUMMARY: PT A/O X 4 IND IN ROOM. PT REPORTED JAW PAIN AFTER EATING DINNER, 10/10 PAIN. PT WAS NSR AT 52 ON TELE AT TIME OF REPORT. PT GIVEN MORPHINE PER ORDER AND PAIN RESOLVED. PT HAD NO OTHER COMPLAINTS TODAY. ECHO COMPLETED TODAY.
--- NOTE | 2022-06-22 01:30 | NUR ---
[employer] CALLED, REPORTED PT RUNNING OCCASIONALL IN THE HIGH 30'S (38). UPON ARRIVAL AT BEDSIDE, PT STARTLED AWAKE, VOICED HE WA "OK", SOME HEARTBURN, OTHERWISE OK. [employer] THEN WAS CALED, CURRENTLY SR AT 64. CALL LIGHT IN REACH
--- NOTE | 2022-06-22 03:38 | NUR ---
FRONT DESK RECEPTIONIST SUMMARY OTHER THAN BRADLEY CARDIA - IN THE HIGH 30'S TO LOW 60'S, VSS. DENIED CHEST PAIN WHEN ASKED. VOICED HEARTBURN WHEN AWAKENED IN THE SHIFT (TELE CALLED AND REPORTED 38 HR), STARTLED WHEN AWAKENED. NOTIFIED AND TUMStefanie ORDERED. HAS BEEN RESTING QUIETLY WITH FEW INTERRUPTIONS SINCE. HR RUNNING BETWEEN 48 TO 64. CALL LIGHT IN REACH. UP AD MIRACLE IN ROOM. NO SOB NOTED. WILL CONTINUE TO MONITOR
[2022-06-22 05:35] LABS: BASOPHILS ABSOLUTE AUTO 0.03 K/mm3 (0.00-0.23); BASOPHILS PERCENT AUTO 0 % (0-2); EOSINOPHILS ABSOLUTE AUTO 0.15 K/mm3 (0.00-0.68); EOSINOPHILS PERCENT AUTO 2 % (0-6); Hematocrit 42.4 % (37.0-53.0); Hemoglobin 14.9 g/dL (13.5-17.5); IMMATURE GRAN ABSOLUTE AUTO 0.01 K/mm3 (0.00-0.10); IMMATURE GRAN PERCENT AUTO 0 % (0-1); LYMPHOCYTES ABSOLUTE AUTO 3.24 K/mm3 (0.84-5.20); LYMPHOCYTES PERCENT AUTO 47 % (21-46); MONOCYTES ABSOLUTE AUTO 0.47 K/mm3 (0.16-1.47); MONOCYTES PERCENT AUTO 7 % (4-13); Mean Corpuscular HGB 30.8 pg (26.0-34.0); Mean Corpuscular HGB Conc 35.1 g/dL (31.5-36.5); Mean Corpuscular Volume 88 fL (80-100); NEUTROPHILS ABSOLUTE AUTO 3.05 K/mm3 (1.96-9.15); NEUTROPHILS PERCENT AUTO 44 % (41-73); Platelet Count 199 K/mm3 (150-400); RDW Standard Deviation 38.6 fL (35.1-46.3); Red Blood Cell Count 4.83 M/mm3 (4.30-5.90); White Blood Cell Count 6.95 K/mm3 (4.00-11.30)
[2022-06-22 06:00] LABS: Bun/Creatinine Ratio 13.9 (12.0-20.0); Creatinine, Blood 1.01 mg/dL (0.60-1.20)
--- NOTE | 2022-06-22 14:02 | NUR ---
LEFT AMA 1155: PT LEFT AMA. PLACED CALL TO MD TO NOTIFY. NO ORDERS RECEIVED. TELE REMOVED, CHIEF LOCK OPERATOR NOTIFIED. PIV DC'D WITH CATH TIP INTACT, NO REDNESS OR SWELLING NOTED. PT SIGNED AMA FORM AND LEFT WITH ALL PERSONAL BELONGINGS.
== END 2022-06-22 12:00 | disposition left against medical advice (07) ==
LOC: ER 10:13 → ERHOLD 10:14 → MEDS 10:14
PROVIDERS: Physician Assistant; ADMIT Internal Medicine
DX: R07.9 Chest pain, unspecified (principal); I25.2 Old myocardial infarction; K21.9 Gastro-esophageal reflux disease without esophagitis; I10 Essential (primary) hypertension; I25.10 Atherosclerotic heart disease of native coronary artery without angina pectoris; E78.5 Hyperlipidemia, unspecified; F41.9 Anxiety disorder, unspecified; F17.200 Nicotine dependence, unspecified, uncomplicated; Z88.8 Allergy status to other drugs, medicaments and biological substances; Z79.82 Long term (current) use of aspirin; Z79.899 Other long term (current) drug therapy; Z95.5 Presence of coronary angioplasty implant and graft
CPT/HCPCS: 36415; 71046; 80048; 80053; 84484; 85025; 93005; 93010; 93306; 96374; A9270; G0378; J2270

== ENCOUNTER 2022-07-02 08:29 | Day surgery (SDC) | payer MEDICARE, OTHER ==
[~2022-07-02] VITALS: Ht 170.2 cm; Wt 70.3 kg
[~2022-07-02 08:29] MED LIST changes: +ALBU2.5V5; +RANO500T PO
--- NOTE | 2022-07-02 18:39 | NUR ---
SHIFT SUMMARY PATIENT ALERT AND ORIENTE X4. HAS BEEN EXPERIENCING CHEST PAIN RANGING FROM 8-10/10. DR ROCK MADE AWARE. PATIENT MEDICATED PER EMAR FOR CHEST PAIN AND NAUSEA. TR BAND REMOVED AROUNG 1800, SLIGHT BRUISING NOTED, NO OOSING PRESENT AT THIS TIME. WILL CONTINUE TO MONITOR. CALL LIGHT WITHIN REACH.
--- NOTE | 2022-07-02 21:24 | NUR ---
ASSUMPTION OF CARE 1899 THIS RN ASSUMED CARE OF PT AT 1900. REPORT RECIEVED FROM THIERNO MERAZ. PT SITTING UP IN BED, WATCHING TV. PT IS A&O X4; RESPONDING AND INTERACTING APPROPRIATELY. PT REPORTS CP 11/27, STATES THIS IS SLIGHTLY IMPROVED FROM EARLIER. PER DAYSHIFT AND NOTES, PROVIDER IS AWARE OF PT REPORTS OF CP. PT MEDICATED PER EMAR. PT ALSO REPORTS INDIGESTION. PT REQUESTED TUMS OR ROLAIDS; THIS RN NOTIFIED PROVIDER. NEW ORDERS FOR TUMS PER EMAR. VSS; BP 117/77, SR W/HR 60, RR 15, SPO2 97% ON RA. PT DENIES SOB OR N/V, LIGHTHEADNESS OR DIZZINESS. R RADIAL SITE FULLY RECOVERED ON DAYSHIFT AND PER DAYSHIFT RN. THIS RN AND DAYSHIFT NURSE LOOKED AT SITE TOGETHER. NO HEMATOMA, DISCOLORATION, BRUISING OR REDNESS NOTED. NO CHANGES TO SITE PER DAYSHIFT. PT DENIES PAIN, NUMBNESS OR TINGLING. PULSE OX IN PLACE ON THIS HAND. TRANSPARENT TEGADERM IN PLACE AND ARMBOARD IN PLACE. NS INFUSING PER EMAR; WILL STOP PER PROVIDER ORDER AT SPECIFIED TIME. PT DENIES ANY OTHER CONCERNS OR NEEDS AT THIS TIME. CALL LIGHT IN REACH AND BED IN LOWEST POSITION
--- NOTE | 2022-07-03 06:35 | NUR ---
SHIFT SUMMARY PT REMAINS A&O THROUGHOUT SHIFT. PT REPORT CP AND PRESSURE ON AND OFF THROUGHOUT SHIFT. PT REPORTS IT "CRUSHING" AND AT TIMES "PINCHING. AROUND THE END OF SHIFT PT CALLS THIS RN INTO ROOM AND STATES "I AM FEELING FUNNY, IN MY CHEST AND JUST NOT FEELING RIGHT." VS CHECKED; STABLE. PT DENIES N/V, DIZZINESS, LIGHTHEADNESS. PT NOT DIAPHORETIC. PT DECLINES NITRO OR MORPHINE PER EMAR ORDERS. PT HANDS WERE A LITTLE SHAKY, PT STATES MAYBE IT IS R/T "BEING HUNGRY AND NEEDING TO EAT". PT ATE SMALL SNACK, REPORTS FEELING BETTER AND IS NOT SHAKING ANYMORE. PT PLEASANT THROUGHOUT SHIFT. USING URINAL AT BEDSIDE INDEPENDENTLY. NO OTHER CHANGES THROUGHOUT SHIFT. CALL LIGHT IN REACH AND BED IN LOWEST POSITION. WILL UPDATE ONCOMING NURSE.
[2022-07-03 07:28] LABS: Bun/Creatinine Ratio 12.2 (12.0-20.0); Calcium, Blood 8.3 mg/dL (8.5-10.1); Creatinine, Blood 0.9 mg/dL (0.60-1.20); Potassium, Blood 3.9 mmol/L (3.5-5.5)
[2022-07-03] MEDS ORDERED: EZET10 PO (12:45)
[2022-07-03] MEDS ORDERED: Crestor20 MG PO (12:45)
--- NOTE | 2022-07-03 14:04 | NUR ---
PT DISCHARGE TO HOME WITH DISCHARGE ORDERS, DISCHARGE INSTRUCTIONS AND NEW MEDICATIONS DISCLOSED WITH THE PT. PRESCRIPTION SENT TO [facility]. PT TO FOLLOW UP WITH PCP AND [facility] WITHIN A WEEK. RIGHT RADIAL SITE DRESSING INTACT PT ASKED TO REPLACE WITH REGULAR BAND AID, NO HEMATOMA OR REDNESS NOTED AROUND THE SITE, VITALS HAS BEEN STABLE. PT AMBULATORY FOR DISCHARGE. ALL BELONGINGS SENT WITH THE PT
== END 2022-07-03 12:50 | disposition home or self-care (01) ==
LOC: MHTC 08:29 → PCU 13:07 → MHTC 07-03 12:50
PROVIDERS: Internal Medicine Cardiovascular Disease
DX: I25.110 Atherosclerotic heart disease of native coronary artery with unstable angina pectoris (principal); R07.9 Chest pain, unspecified; I25.2 Old myocardial infarction; Z88.8 Allergy status to other drugs, medicaments and biological substances; I10 Essential (primary) hypertension; E78.5 Hyperlipidemia, unspecified
CPT/HCPCS: 36415; 76937; 80048; 82550; 84484; 85347; 92920; 93005; 93010; 93458; 99152; 99153; A9270; C1725; C1753; C1769; C1874; C1887; C1894; C9600; J1644; J2250; J2270; J2405; J3010; J7030; J7040; J7050; Q9967

== ENCOUNTER 2022-07-16 09:59 | Day surgery (SDC) | payer MEDICARE, OTHER ==
[~2022-07-16] VITALS: Ht 170.2 cm; Wt 75.3 kg
[~2022-07-16 09:59] MED LIST changes: -ALBU2.5V5; +ALBU2.5V5 NEB; +Crestor20 MG PO; +EZET10 PO
[2022-07-16] MEDS ORDERED: RANO500T PO (10:26)
[2022-07-16] MEDS ORDERED: Isosorbide Mono30 MG PO (14:34)
--- NOTE | 2022-07-16 15:09 | NUR ---
PATIENT IN RECOVERY ROOM CONVERSING APPROPRIATELY. 2CC OF AIR REMOVED FROM TR BAND ON R RADIAL SITE. SITE C/D/I, SOFT/NONTENDER, NO EVIDENCE OF HEMATOMA. PATIENT DENYING ANY CHEST PAIN. PATIENT DENYING ANY NUMBNESS OR TINGLING. VSS ON RA. PATIENT SITTING UPRIGHT IN RECLONER EATING LUNCH.
--- NOTE | 2022-07-16 15:30 | NUR ---
ASSUMED CARE OF PT. PT AWAKE AND CONVERSING APPROPRIATELY, DENIES CHEST PAIN POST PROCEDURE. MONITOR SB 50'S, B/P 145/80, SPO2 96% RA. R GROIN NO SWELLING/HEMATOMA, TR BAND IN PLACE-ACTIVEY REMOVING AIR; RUE POSITIVE PLEUTH.
--- NOTE | 2022-07-16 15:47 | NUR ---
DR FISCHER IN TO DISCUSS PROCEDURE RESULTS AND STARTING IMDUR.
--- NOTE | 2022-07-16 15:50 | NUR ---
TR BAND FULLY DEFLATED, NO SWELLING/HEMATOMA.
--- NOTE | 2022-07-16 16:15 | NUR ---
PT DRESSED SELF WITHOUT ISSUE, SITE UNCHANGED. TR BAND REMOVED, CLOTH DOT AND WRIST IMMOBILIZER PLACED; IV REMOVED-CANNULA INTACT.
--- NOTE | 2022-07-16 16:28 | NUR ---
PT RECEIVED DISCHARGE INSTRUCTIONS, MED LIST AND AFTER CARE INSTRUCTIONS; VERBALIZED GOOD UNDERSTANDING. PT LEFT FACILITY VIA W/C, CONDITION STABLE.
== END 2022-07-16 16:28 | disposition home or self-care (01) ==
LOC: MHTC 09:59
DX: I25.118 Atherosclerotic heart disease of native coronary artery with other forms of angina pectoris (principal); I10 Essential (primary) hypertension; E78.5 Hyperlipidemia, unspecified; Z79.82 Long term (current) use of aspirin; Z79.02 Long term (current) use of antithrombotics/antiplatelets; Z79.899 Other long term (current) drug therapy
CPT/HCPCS: 76937; 93454; 99152; 99153; A9270; C1769; C1887; C1894; J1644; J2250; J3010; J7030; J7050; Q9967

== ENCOUNTER 2024-05-18 21:25 | Emergency (ER) | payer MEDICARE, OTHER ==
[~2024-05-18] VITALS: Ht 172.7 cm; Wt 73.9 kg
[~2024-05-18 21:25] MED LIST changes: +Isosorbide Mono30 MG PO
[2024-05-19 00:37] LABS: BASOPHILS ABSOLUTE AUTO 0.05 K/mm3 (0.00-0.23); BASOPHILS PERCENT AUTO 1 % (0-2); EOSINOPHILS ABSOLUTE AUTO 0.25 K/mm3 (0.00-0.68); EOSINOPHILS PERCENT AUTO 2 % (0-6); Hematocrit 44.2 % (37.0-53.0); Hemoglobin 15.4 g/dL (13.5-17.5); IMMATURE GRAN ABSOLUTE AUTO 0.02 K/mm3 (0.00-0.10); IMMATURE GRAN PERCENT AUTO 0 % (0-1); LYMPHOCYTES ABSOLUTE AUTO 4.12 K/mm3 (0.84-5.20); LYMPHOCYTES PERCENT AUTO 39 % (21-46); MONOCYTES PERCENT AUTO 7 % (4-13); Mean Corpuscular HGB 31.1 pg (26.0-34.0); Mean Corpuscular HGB Conc 34.8 g/dL (31.5-36.5); Mean Corpuscular Volume 89 fL (80-100); Mean Platelet Volume 9.7 fL (9.1-12.4); NEUTROPHILS ABSOLUTE AUTO 5.54 K/mm3 (1.96-9.15); NEUTROPHILS PERCENT AUTO 52 % (41-73); Platelet Count 227 K/mm3 (150-400); RDW Coefficient Variation 12.2 % (11.7-14.2); RDW Standard Deviation 39.9 fL (35.1-46.3); Red Blood Cell Count 4.95 M/mm3 (4.30-5.90); White Blood Cell Count 10.68 K/mm3 (4.00-11.30)
[2024-05-19 00:55] LABS: Albumin, Blood 3.9 g/dL (3.4-5.0); Albumin/Globulin Ratio 1.1 (0.8-1.8); Bilirubin, Total 0.3 mg/dL (0.1-1.0); Bun/Creatinine Ratio 16.3 (12.0-20.0); Calcium, Blood 9.3 mg/dL (8.5-10.1); Creatinine, Blood 0.92 mg/dL (0.60-1.20); Globulin, Blood 3.7 g/dL (2.2-4.0); Potassium, Blood 3.7 mmol/L (3.5-5.5); Total Protein, Blood 7.6 g/dL (6.4-8.2)
[2024-05-19] MEDS ORDERED: Ondansetron HCl 2 MG / ML 2ML Vial IV ONE (02:30)
[2024-05-19] MEDS ORDERED: Morphine Sulfate 4 MG/1 ML Injection IV ONE (02:30)
[2024-05-19] MEDS ORDERED: MIRALAX17 GM PO (04:54)
[2024-05-19] MEDS ORDERED: Golytely Solu4000 ML PO (04:54)
[2024-05-19] MEDS ORDERED: ACET500 PO (04:54)
[2024-05-19 05:00] VITALS: BP 97/77
== END 2024-05-19 05:17 | disposition home or self-care (01) ==
LOC: ER 21:25
PROVIDERS: Student in an Organized Health Care Education/Training Program
DX: K40.90 Unilateral inguinal hernia, without obstruction or gangrene, not specified as recurrent (principal); K59.00 Constipation, unspecified; Z88.8 Allergy status to other drugs, medicaments and biological substances; Z79.899 Other long term (current) drug therapy; Z79.82 Long term (current) use of aspirin; K21.9 Gastro-esophageal reflux disease without esophagitis; I10 Essential (primary) hypertension; F17.200 Nicotine dependence, unspecified, uncomplicated
CPT/HCPCS: 74177; 80053; 83690; 83735; 85025; 96374-59; 96375; 99284; J2270; J2405; Q9967

== ENCOUNTER 2024-06-06 10:30 | Emergency (ER) | payer OTHER ==
[~2024-06-06] VITALS: Ht 167.6 cm; Wt 74.8 kg
[~2024-06-06 10:30] MED LIST changes: +ACET500 PO; +Golytely Solu4000 ML PO; +MIRALAX17 GM PO
[2024-06-06 11:43] LABS: BASOPHILS ABSOLUTE AUTO 0.02 K/mm3 (0.00-0.23); BASOPHILS PERCENT AUTO 0 % (0-2); EOSINOPHILS ABSOLUTE AUTO 0.21 K/mm3 (0.00-0.68); EOSINOPHILS PERCENT AUTO 3 % (0-6); Hematocrit 46.6 % (37.0-53.0); Hemoglobin 15.9 g/dL (13.5-17.5); IMMATURE GRAN ABSOLUTE AUTO 0.02 K/mm3 (0.00-0.10); IMMATURE GRAN PERCENT AUTO 0 % (0-1); LYMPHOCYTES ABSOLUTE AUTO 2.63 K/mm3 (0.84-5.20); LYMPHOCYTES PERCENT AUTO 33 % (21-46); MONOCYTES ABSOLUTE AUTO 0.66 K/mm3 (0.16-1.47); MONOCYTES PERCENT AUTO 8 % (4-13); Mean Corpuscular HGB 30.6 pg (26.0-34.0); Mean Corpuscular HGB Conc 34.1 g/dL (31.5-36.5); Mean Corpuscular Volume 90 fL (80-100); Mean Platelet Volume 9.8 fL (9.1-12.4); NEUTROPHILS ABSOLUTE AUTO 4.46 K/mm3 (1.96-9.15); NEUTROPHILS PERCENT AUTO 56 % (41-73); Platelet Count 251 K/mm3 (150-400); RDW Standard Deviation 39.4 fL (35.1-46.3)
[2024-06-06 12:20] LABS: Source, Urine Clean Catch
[2024-06-06 12:23] LABS: Bilirubin, Urine Neg (Neg); Blood, Urine Neg (Neg); Glucose Qualitative, Urine Neg (Neg); Ketones, Urine Neg (Neg); Leukocyte Esterase, Urine Neg (Neg); Nitrite, Urine Neg (Neg); Protein, Urine Neg (Neg); Specific Gravity, Urine 1.025 (1.003-1.022); Urobilinogen, Urine 1+ (Normal)
[2024-06-06 12:27] LABS: Magnesium, Blood 2.7 mg/dL (1.6-2.4)
[2024-06-06 12:28] LABS: Albumin, Blood 3.9 g/dL (3.4-5.0); Albumin/Globulin Ratio 0.9 (0.8-1.8); Bilirubin, Total 0.4 mg/dL (0.1-1.0); Calcium, Blood 9.8 mg/dL (8.5-10.1); Creatinine, Blood 0.86 mg/dL (0.60-1.20); Globulin, Blood 4.2 g/dL (2.2-4.0); Potassium, Blood 4.1 mmol/L (3.5-5.5); Total Protein, Blood 8.1 g/dL (6.4-8.2)
[2024-06-06 12:45] LABS: Appearance, Urine Clear (Clear); Color, Urine Yellow (P-Yellow)
[2024-06-06] MEDS ORDERED: Ketorolac Tromethamine 30mg Vial IV ONE (13:10)
[2024-06-06 13:26] VITALS: BP 139/87
[2024-06-06] MEDS ORDERED: AMLODIPINE BESY10 MG PO (13:27)
[2024-06-06] MEDS ORDERED: PANTOPRAZOLE SO40 M2 PO (13:27)
== END 2024-06-06 14:59 | disposition home or self-care (01) ==
LOC: ER 10:30
PROVIDERS: Physician Assistant
DX: K59.00 Constipation, unspecified (principal); R10.9 Unspecified abdominal pain; F17.210 Nicotine dependence, cigarettes, uncomplicated; Z95.5 Presence of coronary angioplasty implant and graft
CPT/HCPCS: 74177; 80053; 81003; 83690; 83735; 85025; 96374-59; 99284-25; J1885; Q9967